=== PATIENT | male | born 1945 | race Caucasian/White ===

== ENCOUNTER → 2018-01-12 10:30 | Outpatient (CLI) | payer MEDICARE, OTHER, SELFPAY | PROVIDERS: PCP Family Medicine; Visit Provider Nurse Practitioner Gerontology | DX: N40.1 Benign prostatic hyperplasia with lower urinary tract symptoms (principal); N13.8 Other obstructive and reflux uropathy | CPT/HCPCS: 99213 ==

== ENCOUNTER 2018-03-21 01:21 | Outpatient (CLI) | payer MEDICARE, OTHER, SELFPAY | END 2018-03-21 01:41 | PROVIDERS: PCP Family Medicine; Visit Provider Family Medicine | DX: E11.9 Type 2 diabetes mellitus without complications (principal); I10 Essential (primary) hypertension | CPT/HCPCS: 36415; 83036 ==

== ENCOUNTER 2018-06-14 00:10 | Outpatient (CLI) | payer MEDICARE, OTHER, SELFPAY ==
--- NOTE | 2018-06-14 07:07 | MERGEMPI_ITS ---
*[facility]* *[facility]* [address] [place] [address] Myocardial Perfusion Imaging - SPECT Baltazar protocol Date of study: 06/14/2018 *PATIENT PRESENTATION* Height: 177.8cm (70in) Blood Pressure: Weight: 84.1kg (185lb) BSA: 2.05m^2 Referring physician: Abel Light Ordering physician: Jose Manuel Hancock Impressions: Normal study after maximal exercise. Summary: 1. Myocardial perfusion imaging: No myocardial perfusion defects noted. 2. The calculated left ventricular ejection fraction after stress: 59%. LV global systolic function is normal. No left ventricular regional motion abnormality. 3. Stress ECG conclusions: The stress ECG is negative. Seals treadmill score: 9. This score predicts a low risk of cardiac events. 4. Stress: The target heart rate was achieved. The heart rate response to stress is exaggerated. There is a normal resting blood pressure with an appropriate response to stress. The patient experienced no chest pain during stress. Exercise capacity is above normal for age. 5. Treadmill exercise testing was performed using the Baltazar protocol. The patient exercised for 9 min 4 sec, to protocol stage 3, to a maximal work rate of 10.2mets. Indication: R07.9. History: REASON FOR TESTING: PATIENT REPORTS INTERMITTENT ANNOYING DULL LEFT SIDED CHEST PAIN OVER THE LAST MONTH WITH NO ASSOCIATED SYMPTOMS. SMOKING STATUS: QUIT IN 1972, PRIOR HISTORY 9 YEARS 2 PPD. EXERCISE ROUTINE: RIDES STATIONARY BIKE FOR 1 HOUR 45 MINUTES PER DAY. Risk factors: Family history of coronary artery disease. Hypertension. Diabetes mellitus. Dyslipidemia. Cholesterol: 274mg/dl. HDL: 56mg/dl. LDL: 112mg/dl. Triglycerides: 108mg/dl. ALLERGIES: NO KNOWN ALLERGIES. MEDICATIONS: CARVEDILOL 3.125 MG BID, LISINOPRIL 10 DAILY, METFORMIN 500 MG BID, SPIRONOLACTONE 12.5 MG DAILY, LEVOTHYROXIN 112 MCG DAILY, AMLODIPINE 2.5 MG DAILY, RANITIDINE 150 MG DAILY, PRAVASTATIN 20 MG. Imaging Technique: Protocol: Baltazar protocol. Acquisition: Gated SPECT; 1 day - rest/stress. The patient was imaged in the supine position. Attenuation correction used. Isotope administration: - Rest. Tc[99m]-sestamibi. Dose: 10.4mCi. Injection time: 08:45 AM. Injection to stress time: 00:45. - Stress. Tc[99m]-sestamibi. Dose: 29.5mCi. Injection time: 11:50 AM. 1-2 min before end of exercise Baseline ECG: FIRST DEGREE HEART BLOCK WITH IN 0.23. HR 69. Normal ECG. Stress protocol: + +---+ +---+ !Stage !HR !BP (mmHg) !Sat! + +---+ +---+ !Baseline supine !69 !146/80 (102)!97%! + +---+ +---+ !Baseline standing !80 !130/90 (103)!---! + +---+ +---+ !Stage I; 1.7mph, 10degrees; 3 min !112!148/78 (101)!---! + +---+ +---+ !Stage II; 2.5mph, 12degrees; 3 min!124!180/88 (119)!---! + +---+ +---+ !Recovery; 1 min !129!170/80 (110)!---! + +---+ +---+ !Recovery; 3 min !88 !134/80 (98) !---! + +---+ +---+ !Recovery; 6 min !83 !120/80 (93) !---! + +---+ +---+ * Stress results: STRESS TEST ENDED IN 9 MINUTES 4 SECONDS DUE TO HAVING MET 100% OF TARGET HEART RATE AND FATIGUE. NORMAL HEART RATE AND BLOOD PRESSURE RESPONSE TO EXERCISE. MAX HEART RATE = 154 % OF TARGET = 104 % APPROXIMATE MET'S ACHIEVED = 10.24 RARE PVC AT 1 MINUTE RECOVERY AND RARE COUPLET. NO ANGINA NO SIGNIFICANT ST SEGMENT CHANGES. ABOVE AVERAGE FUNCTIONAL CAPACITY. Maximal heart rate during stress was 154bpm (105% of maximal predicted heart rate). The maximal predicted heart rate was 147bpm. The target heart rate was achieved. The heart rate response to stress is exaggerated. There is a normal resting blood pressure with an appropriate response to stress. The rate-pressure product for the peak heart rate and blood pressure was 83865jd Hg/min. The patient experienced no chest pain during stress. Exercise capacity is above normal for age. Stress ECG: The stress ECG is negative. Seals treadmill score: 9. This score predicts a low risk of cardiac events. Myocardial perfusion: Imaging information: gated. The image quality was excellent. Left ventricular size is normal. No myocardial perfusion defects noted. Ventricular Function (Wall Motion): The calculated left ventricular ejection fraction after stress: 59%. LV global systolic function is normal. No left ventricular regional motion abnormality. Study data: Abel Light MD supervised and was readily available during the procedure. This study was interpreted by [facility]. Study status: Routine. Consent: The risks, benefits, and alternatives to the procedure were explained to the patient and informed consent was obtained. Procedure: Initial setup. A baseline ECG was recorded. Surface ECG leads and manual cuff blood pressure measurements were monitored. Heart sounds: Normal. Lung sounds: Normal. Treadmill exercise testing was performed using the Baltazar protocol. The patient exercised for 9 min 4 sec, to protocol stage 3, to a maximal work rate of 10.2mets. Study completion: All catheters inserted during the procedure were removed. The patient tolerated the procedure well and was discharged from the lab. Discharge: The patient left the laboratory in stable condition. Birthdate: Patient birthdate: 1945. Sex: Gender: male. Study date: Study date: 06/14/2018. Study time: 07:07 AM. Signature Documentation: - The imaging portion of this study was interpreted by Nuclear Grading Supervisor Abel Light MD. - The Stress ECG portion of this study was interpreted by Abel Light MD. Electronically signed by Abel Light 06/14/2018 14:50
== END 2018-06-14 00:30 ==
PROVIDERS: PCP Family Medicine; Visit Provider Family Medicine
DX: R07.9 Chest pain, unspecified (principal); I10 Essential (primary) hypertension; E11.9 Type 2 diabetes mellitus without complications; E78.5 Hyperlipidemia, unspecified; E03.9 Hypothyroidism, unspecified; Z87.891 Personal history of nicotine dependence; Z82.49 Family history of ischemic heart disease and other diseases of the circulatory system
CPT/HCPCS: 78452; 93016; 93018; 93017; J2785

== ENCOUNTER 2018-10-12 02:08 | Outpatient (CLI) | payer MEDICARE, OTHER, SELFPAY ==
[2018-10-12 12:23] LABS: Hemoglobin A1C 6.3 % (4.5-6.2)
[2018-10-12 14:04] LABS: CREATININE 1.24 mg/dL (0.70-1.30); Estimated GFR 57.14 (mL/min/1.73m2); Potassium 4.7 mmol/L (3.5-5.1)
== END 2018-10-12 02:28 ==
PROVIDERS: PCP Family Medicine; Visit Provider Family Medicine
DX: E11.9 Type 2 diabetes mellitus without complications (principal)
CPT/HCPCS: 36415; 82565; 83036; 84132

== ENCOUNTER 2018-11-13 01:05 | Outpatient (CLI) | payer MEDICARE, OTHER, SELFPAY ==
--- NOTE | 2018-11-13 08:25 | DI.RAD_ITS ---
SYMPTOM/DIAGNOSIS: M54.9, LOW BACK PAIN LUMBAR SPINE: There is severe disc space narrowing throughout. There are prominent endplate osteophytes, greatest at L 2-3 and L 3-4 on the left causing mild degenerative scoliosis. There are also prominent facet joint degenerative changes at L 4-5 and L 5-S 1. No compression fractures are seen. There is no spondylolysis or spondylolisthesis. The aorta shows calcification and is normal in diameter. IMPRESSION: Severe degenerative changes.
== END 2018-11-13 01:25 ==
PROVIDERS: PCP Family Medicine; Visit Provider Family Medicine
DX: M54.5 Low back pain (principal); M51.37 Other intervertebral disc degeneration, lumbosacral region
CPT/HCPCS: 72110

== ENCOUNTER 2019-01-09 08:57 | Outpatient (CLI) | payer MEDICARE, OTHER, SELFPAY ==
[2019-01-09 12:44] LABS: ALT 27 U/L (12-78); AST 19 U/L (15-37); Albumin 3.6 g/dL (3.4-5.0); Alkaline Phosphatase 65 U/L (46-116); Bilirubin, Total 0.5 mg/dL (0.2-1.0); Calculated LDL 155 mg/dL; Cholesterol 231 mg/dL (50-200); HDL Cholesterol 45 mg/dL (40-60); Total Protein 6.9 g/dL (6.4-8.2); Triglyceride 158 mg/dL (30-150)
[2019-01-09 12:53] LABS: Bilirubin, Direct 0.09 mg/dL (0.00-0.20)
== END 2019-01-09 09:17 ==
PROVIDERS: PCP Family Medicine; Visit Provider Family Medicine
DX: E78.5 Hyperlipidemia, unspecified (principal)
CPT/HCPCS: 36415; 80061; 80076; 83721

== ENCOUNTER → 2019-01-31 10:24 | Outpatient (BNVA) | payer MEDICARE, OTHER, SELFPAY | PROVIDERS: PCP Family Medicine; Visit Provider Nurse Practitioner Gerontology | DX: N40.1 Benign prostatic hyperplasia with lower urinary tract symptoms (principal); N13.8 Other obstructive and reflux uropathy | CPT/HCPCS: 99213 ==

== ENCOUNTER 2019-04-18 10:01 | Outpatient (CLI) | payer MEDICARE, OTHER, SELFPAY ==
[2019-04-18 11:45] LABS: HCT 39.9 % (40.0-50.0); HGB 13.3 g/dL (13.5-17.5); Mean Corp. HGB Concentration 33.3 g/dL (32.0-36.0); Mean Corpuscular Hemoglobin 30.6 pg (27.0-33.0); Mean Corpuscular Volume 91.9 fL (80-95); Mean Platelet Volume 9.6 fL (8.0-11.0); Platelet Count 259 x1000/uL (130-400); RBC 4.34 m/cumm (4.50-6.00); RBC Distribution Width 12.4 % (11.8-14.1); White Blood Cell Count 5.32 k/cumm (4.4-10.8)
[2019-04-18 12:03] LABS: Hemoglobin A1C 6.7 % (4.5-6.2)
[2019-04-18 13:01] LABS: TSH (W/Ref FT4) 0.66 uIU/mL (0.36-3.74)
== END 2019-04-18 10:21 ==
PROVIDERS: PCP Family Medicine; Visit Provider Family Medicine
DX: I10 Essential (primary) hypertension (principal); E11.9 Type 2 diabetes mellitus without complications; K57.90 Diverticulosis of intestine, part unspecified, without perforation or abscess without bleeding
CPT/HCPCS: 36415; 85027; 83036; 84443

== ENCOUNTER → 2019-04-30 09:02 | Outpatient (BNVA) | payer MEDICARE, OTHER, SELFPAY | PROVIDERS: PCP Family Medicine; Referring Provider Family Medicine; Visit Provider Nurse Practitioner Gerontology | DX: N40.1 Benign prostatic hyperplasia with lower urinary tract symptoms (principal); N13.8 Other obstructive and reflux uropathy; I10 Essential (primary) hypertension | CPT/HCPCS: 99213 ==

== ENCOUNTER 2019-07-17 09:45 | Outpatient (CLI) | payer MEDICARE, OTHER, SELFPAY ==
[2019-07-17 13:19] LABS: Calculated LDL 134 mg/dL (<100); Cholesterol 209 mg/dL (<200); HDL Cholesterol 46 mg/dL (40-60); Triglyceride 149 mg/dL (<150)
[2019-07-17 14:21] LABS: Hemoglobin A1C 6.8 % (3.8-5.6)
== END 2019-07-17 10:05 ==
PROVIDERS: PCP Family Medicine; Visit Provider Family Medicine
DX: E78.5 Hyperlipidemia, unspecified (principal); R73.9 Hyperglycemia, unspecified
CPT/HCPCS: 36415; 80061; 83036

== ENCOUNTER 2019-07-28 21:27 | Emergency (ER) | payer MEDICARE, OTHER, SELFPAY ==
[2019-07-28 21:32] VITALS: BP 141/85; PULSE 83; RESP 14; TEMP 36.6; O2SAT 97
--- NOTE | 2019-07-28 21:45 | DI.RAD_ITS ---
EXAM: XR ELBOW RT COMPLETE INDICATION: pain, injury. COMPARISON: No exams were available for comparison TECHNIQUE: 2D digital imaging was performed. FINDINGS: No fracture or joint effusion is seen. There is some posterior soft tissue swelling over the proxima l ulna. There is mild spurring at the olecranon as well as radial tubercle. There is mild joint spa ce narrowing. IMPRESSION: Degenerative changes. No acute abnormality. DATA REPOSITORY: RADIATION DOSE DELIVERED:
--- NOTE | 2019-07-28 21:45 | DI.RAD_ITS ---
EXAM: XR SHOULDER RT COMPLETE 2+V INDICATION: pain, fall. COMPARISON: LEFT SHOULDER COMPLETE from 06/27/2009 TECHNIQUE: 2D digital imaging was performed. FINDINGS: No fracture or dislocation is seen. There is spurring at the AC joint and glenohumeral joint. There is spurring from the greater and lesser tuberosities. No tendon or joint space calcifications are s een. IMPRESSION: Degenerative changes. No acute abnormality. DATA REPOSITORY: RADIATION DOSE DELIVERED:
[2019-07-28] MEDS: Acetaminophen 500 MG TAB 1000 MG PO (21:55)
--- NOTE | 2019-07-28 21:58 | W.ED.GENAD ---
Discharge Plan Disposition Patient Disposition: HOME Condition: Stable Discharge Details Chief Complaint: Orthopedic Clinical Impression: Acute shoulder pain, Elbow injury, Epicondylitis, lateral Primary Care Provider: Jose Manuel Hancock ED Provider: Tricia Mcguire Home Meds and New Rx's Prescriptions: Continued tamsulosin [Flomax] 0.4 mg capsule 0.8 mg PO DAILY Qty: 180 RF: 3 amlodipine 5 mg tablet 10 mg PO DAILY RF: 0 levothyroxine 112 mcg tablet 112 mcg PO DAILY Qty: 90 RF: 3 metformin 500 mg tablet 500 mg PO BID Qty: 180 RF: 3 (DME) ChannelAdvisorTouch Ultra Blue Test Strip Strip See Dose Instructions .ROUTE .MEDSUPPLY Qty: 100 RF: 3 spironolactone 25 mg tablet 12.5 mg PO DAILY Qty: 45 RF: 4 aspirin 81 MG tablet,delayed release (DR/EC) 81 mg PO DAILY RF: 0 lisinopril 10 mg tablet 10 mg PO DAILY Qty: 90 RF: 3 atorvastatin 20 mg tablet 20 mg PO QPM Qty: 90 RF: 3 Discharge Instructions Instructions: Shoulder Pain (ED) Additional Instructions: Rest. Activities as tolerated. Elevate injury to prevent swelling. Sling for 3 to 5 days. Pendulum exercises as discussed, this exercise should be nonpainful. Ice to the area of discomfort for 15 min. 3-5 times daily. Motrin every 8 hours with food or Tylenol every 6 hours for soreness if needed over the counter for comfort. Followup with orthopedic doctor as discussed if not improving in one week. Return for any worsening or concerns sooner if needed. Referrals: Dallas Gold MD [ [facility] STAFF PHYSICIAN] - Discharge Data Discharge Date/Time-TO BE ENTERED AT DEPARTURE: 07/28/19 23:45 Medical Decision Making Very pleasant 74-year-old patient who fell on ice approximately 1-1/2 hours ago landing on his right arm. Patient denies any head or neck pain. Denies loss of consciousness. Denies use of blood thinners. Has no concern for head injury at this time. Patient has full range of motion of his neck with no pain elicited on exam with palpation of the midline. Patient has mild right paraspinal tenderness of the thoracic spine with no midline tenderness through the thoracic or lumbar spine. Patient with moderate proximal humeral tenderness and shoulder pain with palpation with no associated clavicle tenderness. Elbow pain is also noted on exam specifically the lateral epicondyle. No obvious deformities. Flexion extension intact of the elbow. Supination pronation intact to the forearm. Any attempt of abduction with the right arm causes significant pain. Patient is distal neurovascularly intact with strong pulses noted at the wrist. Patient did take Aleve prior to arrival. I have offered Tylenol prior to x-rays which patient consents to. Patient has no other sites of pain and a benign physical exam outside of the right arm. X-rays reveal no obvious fracture of shoulder, humerus or elbow. Epicondylitis noted on x-ray. Sling provided for patient's comfort. Rice encouraged. We did discuss possibility of ligamentous or muscular injury. Patient's exam is moderately limited given his limitations to range of motion. Did discuss sling use and recommended pendulum exercises. Patient agrees with plan of care. The patient was stable and requested discharge. Prior to discharge, my usual and customary return precautions were reviewed with the patient - this included follow-up instructions and reasons to return to the Emergency Department if conditions worsens, does not improve as expected, or other new concerns arise. HPI General Date/Time Provider Initiated Documentation: 07/28/19 21:53. HPI Narrative: This is a 74-year-old patient who slipped on ice today. Patient reports a slip and fall onto his right side. Patient reports landing on his right shoulder. Denies striking his head. Denies use of blood thinner. Patient denies headache, dizziness, nausea, vomiting. Patient denies neck pain. Patient does report mild pain behind the shoulder blade on the right. Patient predominantly complaining of right shoulder and mild right elbow pain. Patient denies numbness, tingling. He does report difficulty with any attempted range of motion of the right shoulder due to pain. Patient denies any left arm pain or lower extremity injuries. Denies chest pain, difficulty breathing or shortness of breath or wheezing. Denies abdominal pain. No pain with deep breathing. Denies any other concerns or complaints. Did take Aleve with no significant improvement in his symptoms. Patient reports injury occurred approximately 1-1/2 hours ago but pain is difficult to manage. No other concerns or complaints. Related Data Home Medications Medication Instructions Recorded Confirmed aspirin 81 mg PO DAILY tab-cap 09/13/12 07/28/19 tamsulosin 0.4 mg capsule 0.8 mg PO DAILY #180 tab-cap 01/31/19 07/28/19 levothyroxine 112 mcg tablet 112 mcg PO DAILY #90 tab-cap 04/18/19 07/28/19 metformin 500 mg tablet 500 mg PO BID #180 tab 04/18/19 07/28/19 amlodipine 5 mg tablet 10 mg PO DAILY tab 04/30/19 07/28/19 lisinopril 10 mg tablet 10 mg PO DAILY #90 tab-cap 05/16/19 07/28/19 blood sugar diagnostic #100 each 07/17/19 07/28/19 spironolactone 25 mg tablet 12.5 mg PO DAILY #45 tab-cap 07/17/19 07/28/19 atorvastatin 20 mg tablet 20 mg PO QPM #90 tab 07/24/19 07/28/19 Previous Rx's Medication Instructions Recorded tamsulosin 0.4 mg capsule 0.8 mg PO DAILY #180 tab-cap 01/31/19 levothyroxine 112 mcg tablet 112 mcg PO DAILY #90 tab-cap 04/18/19 metformin 500 mg tablet 500 mg PO BID #180 tab 04/18/19 lisinopril 10 mg tablet 10 mg PO DAILY #90 tab-cap 05/16/19 blood sugar diagnostic #100 each 07/17/19 spironolactone 25 mg tablet 12.5 mg PO DAILY #45 tab-cap 07/17/19 atorvastatin 20 mg tablet 20 mg PO QPM #90 tab 07/24/19 Allergies Allergy/AdvReac Type Severity Reaction Status Date / Time No Known Allergies Allergy Unverified 07/28/19 21:37 General Stated Complaint: Orthopedic JOSIANE: 3 Review of Systems All systems reviewed & are unremarkable except as noted in HPI and below Constitutional Constitutional: Denies fatigue, Denies headache(s) and Denies malaise ENT Ears, Nose, Mouth, and Throat: Denies headache(s) and Denies neck pain Cardiovascular Cardiovascular: Denies chest pain Respiratory Respiratory: Denies pain on inspiration Gastrointestinal Gastrointestinal: Denies abdominal pain Musculoskeletal Musculoskeletal: Denies deformity, Reports limited range of motion (Right arm), Denies neck pain, Denies numbness and Denies tingling Integumentary/Breasts Skin/Breast: Denies wounds Neurologic Neurologic: Denies headache(s), Denies numbness and Denies tingling Endocrine Endocrine: Denies fatigue FOR[facility]LY [facility], [facility] Medical History Hypotension (Acute) problematic, as he also has some high BP readings Surgical History (Updated 01/03/19 @ 07:44 by Yassine Lewis) EGD - MAC (06/06/14) Repair of inguinal hernia left 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 Well hydrated. Alert and oriented. NECK: Normal visual inspection. FROM. Trachea midline. No Midline tenderness. CHEST: Normal insepection of the chest. No rib pain with palpation RESP: Normal respiratory effort. Speaking full sentences. No cough. No audible wheezing. No retractions. CARDIO: No JVD. No murmur. Regular rate and rhythm Back: Mild right upper paraspinal tenderness. No midline tenderness throughout the cervical, thoracic and lumbar spine. No CVA tenderness. MUSCULOSKELETAL: Normal Gait. Limited range of motion of right arm. No clavicle pain with palpation on the right. Moderate right shoulder pain with palpation to proximal humeral pain with palpation. Limited range of motion of right arm. Any attempted abduction with significant pain. Mild elbow pain with palpation and swelling over the lateral epicondyle. No significant olecranon tenderness. No obvious deformity. Mild proximal forearm pain with palpation. No mid and distal forearm pain with palpation. No wrist pain with palpation or hand pain with palpation. Theater Company Producer strength intact. Pulses intact. Sensation intact distally. Left arm exam normal, lower extremity exam normal bilaterally. Strength intact in lower extremities. Straight leg raise intact bilaterally. No foot drop. No palpable pain to the lower legs SKIN: Normal. Dry. No rashes. Course Vital Signs Vital signs: Vital Signs Temperature 36.6 C 07/28/19 21:32 Pulse 83 07/28/19 21:32 Respiratory Rate 14 07/28/19 21:32 Blood Pressure 141/85 H 07/28/19 21:32 Pulse Oximetry 97 07/28/19 21:32 Temperature 36.6 C 07/28/19 21:32 Temperature Source Skin 07/28/19 21:32 Pulse 83 07/28/19 21:32 Respiratory Rate 14 07/28/19 21:32 Blood Pressure 141/85 H 07/28/19 21:32 Blood Pressure Position Sitting 07/28/19 21:32 Pulse Oximetry 97 07/28/19 21:32 Oxygen Delivery Method Room Air 07/28/19 21:32 Oxygen Flow Rate 0 07/28/19 21:32 Pain Level 10 07/28/19 21:32
--- NOTE | 2019-07-28 23:04 | DI.VRAD_ITS ---
PROCEDURE INFORMATION: Exam: XR Right Elbow Exam date and time: 07/28/2019 10:07 PM Age: 74 years old Clinical indication: Other: Pain, injury TECHNIQUE: Imaging protocol: XR Right elbow. Views: 3 or more views. COMPARISON: No relevant prior studies available. FINDINGS: Bones/joints: No acute fracture or dislocation. Soft tissues: Minor calcifications in the soft tissues adjacent to the lateral epicondyle suggesting minor chronic epicondylitis. Minor soft tissue swelling over the olecranon. This is likely a area of soft tissue contusion. IMPRESSION: 1. No fracture or dislocation. 2. Minor lateral epicondylitis. 3. Minor soft tissue swelling overlying the olecranon. Dictated and Authenticated by: Kaiden Haynes MD. Ordering:FERMÍN Clarke MD
--- NOTE | 2019-07-28 23:05 | DI.VRAD_ITS ---
PROCEDURE INFORMATION: Exam: XR Right Shoulder Exam date and time: 07/28/2019 10:01 PM Age: 74 years old Clinical indication: Other: Pain, injury TECHNIQUE: Imaging protocol: XR Right shoulder. Views: 2 or more views. COMPARISON: No relevant prior studies available. FINDINGS: Bones/joints: Moderate to severe AC joint degeneration. Mild to moderate glenohumeral joint degeneration. No acute fracture. No dislocation. Visualized right ribs without fracture. Lungs: Visualized portion of the right lung is clear. Pleural space: Right pleural space is unremarkable. Soft tissues: Normal. IMPRESSION: 1. Degenerative AC joint and glenohumeral joint. 2. No fracture, dislocation, or soft tissue disruption. Dictated and Authenticated by: Kaiden Haynes MD. Ordering:FERMÍN Clarke MD
== END 2019-07-28 23:45 | disposition home or self-care (01) ==
PROVIDERS: Emergency Provider Physician Assistant; PCP Family Medicine
DX: M77.11 Lateral epicondylitis, right elbow (principal); M25.511 Pain in right shoulder; W00.0XXA Fall on same level due to ice and snow, initial encounter
CPT/HCPCS: 99283; 73030; 73080; L3650

== ENCOUNTER → 2019-10-29 08:50 | Outpatient (BNVA) | payer MEDICARE, OTHER, SELFPAY | PROVIDERS: PCP Family Medicine; Referring Provider Family Medicine; Visit Provider Nurse Practitioner Gerontology | DX: N40.1 Benign prostatic hyperplasia with lower urinary tract symptoms (principal); N13.8 Other obstructive and reflux uropathy | CPT/HCPCS: 99213; 99442 ==

== ENCOUNTER 2019-12-19 08:47 | Outpatient (CLI) | payer MEDICARE, OTHER, SELFPAY ==
[2019-12-19 12:39] LABS: CREATININE 1.27 mg/dL (0.70-1.30); Calcium 9.4 mg/dL (8.5-10.1); Calculated LDL 80 mg/dL (<100); Cholesterol 148 mg/dL (<200); Estimated GFR 55.44 (mL/min/1.73m2); HDL Cholesterol 50 mg/dL (40-60); Potassium 4.9 mmol/L (3.5-5.1); Triglyceride 91 mg/dL (<150)
[2019-12-19 12:41] LABS: Hemoglobin A1C 6.3 % (3.8-5.6)
== END 2019-12-19 09:07 ==
PROVIDERS: PCP Family Medicine; Visit Provider Family Medicine
DX: E78.5 Hyperlipidemia, unspecified (principal); I10 Essential (primary) hypertension; E83.52 Hypercalcemia; R73.9 Hyperglycemia, unspecified
CPT/HCPCS: 36415; 80061; 82310; 82565; 83036; 84132

== ENCOUNTER 2020-02-20 10:54 | Outpatient (CLI) | payer MEDICARE, OTHER, SELFPAY ==
--- NOTE | 2020-02-20 10:00 | DI.RAD_ITS ---
EXAM: XR SHOULDER RT COMPLETE 2+V CLINICAL HISTORY: right shoulder pain. TECHNIQUE: 2D digital imaging was performed. COMPARISON: CR,XR XR SHOULDER RT COMPLETE 2+V from 07/28/2019 FINDINGS: BONES: No acute fracture is present. No bony destructive lesion is seen. Mild spurring is seen at the lateral aspect of the acromion. JOINTS: No dislocation present. Moderate degenerative changes are seen at the acromioclavicular joint . Mild degenerative changes are seen at the glenohumeral joint. SOFT TISSUE: Normal. IMPRESSION: Degenerative changes of the right shoulder. DATA REPOSITORY: RADIATION DOSE DELIVERED:
== END 2020-02-20 11:14 ==
PROVIDERS: PCP Family Medicine; Referring Provider Family Medicine; Visit Provider Student in an Organized Health Care Education/Training Program
DX: M19.011 Primary osteoarthritis, right shoulder (principal); S46.011A Strain of muscle(s) and tendon(s) of the rotator cuff of right shoulder, initial encounter; W00.0XXA Fall on same level due to ice and snow, initial encounter; M75.51 Bursitis of right shoulder; M75.21 Bicipital tendinitis, right shoulder
CPT/HCPCS: 20610; 99205; 99215; 73030; J1030

== ENCOUNTER → 2020-03-26 12:47 | Outpatient (BNVA) | payer MEDICARE, OTHER, SELFPAY | PROVIDERS: PCP Family Medicine; Referring Provider Student in an Organized Health Care Education/Training Program; Visit Provider Nurse Practitioner Adult Health | DX: G56.11 Other lesions of median nerve, right upper limb (principal); G56.21 Lesion of ulnar nerve, right upper limb; E11.42 Type 2 diabetes mellitus with diabetic polyneuropathy; Z79.84 Long term (current) use of oral hypoglycemic drugs; I10 Essential (primary) hypertension | CPT/HCPCS: 95886; 95909; 99203; 99214 ==

== ENCOUNTER → 2020-04-01 09:01 | Outpatient (BNVA) | payer MEDICARE, OTHER, SELFPAY | PROVIDERS: PCP Family Medicine; Referring Provider Family Medicine; Visit Provider Nurse Practitioner Gerontology | DX: N40.1 Benign prostatic hyperplasia with lower urinary tract symptoms (principal); N13.8 Other obstructive and reflux uropathy; E11.42 Type 2 diabetes mellitus with diabetic polyneuropathy | CPT/HCPCS: 81003; 99213 ==

== ENCOUNTER 2020-04-01 12:38 | Outpatient (REF) | payer MEDICARE, OTHER, SELFPAY ==
[2020-04-03 12:50] LABS: PSA, Screening 0.4 ng/mL (0-6.5)
== END 2020-04-01 12:58 ==
LOC: LBN 12:38
PROVIDERS: PCP Family Medicine; Visit Provider Nurse Practitioner Gerontology
DX: N40.1 Benign prostatic hyperplasia with lower urinary tract symptoms (principal); N13.8 Other obstructive and reflux uropathy; Z12.5 Encounter for screening for malignant neoplasm of prostate
CPT/HCPCS: 84153

== ENCOUNTER → 2020-05-14 08:05 | Outpatient (BNVA) | payer MEDICARE, OTHER, SELFPAY | PROVIDERS: PCP Family Medicine; Referring Provider Family Medicine; Visit Provider Student in an Organized Health Care Education/Training Program | DX: M25.511 Pain in right shoulder (principal); M19.011 Primary osteoarthritis, right shoulder; M75.51 Bursitis of right shoulder; M75.21 Bicipital tendinitis, right shoulder | CPT/HCPCS: 99214 ==

== ENCOUNTER 2020-05-19 01:23 | Outpatient (CLI) | payer MEDICARE, OTHER, SELFPAY ==
--- NOTE | 2020-05-19 14:41 | DI.CT_ITS ---
EXAM: CT UPPER EXTREMITY RT WO CLINICAL HISTORY: Preop templating glenohumeral morphology,OA,M19.011. TECHNIQUE: Imaging Protocol: Axial computed tomography images with coronal and sagittal reformatted images were created and reviewed. COMPARISON: MR MR SHOULDER RIGHT WO CONTRAST from 08/22/2019 MR MR SHOULDER RIGHT WO CONTRAST from 08/22/2019 CR XR SHOULDER RT COMPLETE 2+V from 02/20/2020 FINDINGS: Multiple contiguous axial images through the right shoulder were obtained for preoperative planning. There is no acute fracture or dislocation. The bones are normally mineralized. There are mild-to-m oderate degenerative changes at the acromioclavicular joint. There is superior subluxation of the hu meral head suspicious for chronic rotator cuff tear. Mild degenerative changes are seen at the gleno humeral joint. The visualized lungs are clear. Wyoh-pa-adojqyxw fatty atrophy of the supraspinatus infraspinatus and subscapularis muscles are noted. IMPRESSION: Degenerative changes of the right shoulder as described. Findings suspicious for a chronic rotator c uff tear with superior subluxation of the humeral head. RADIATION DOSE DELIVERED: 749.09mGy.cm Total DLP 749.09mGy.cm Total DLP DATA REPOSITORY: All CT scans at this facility are submitted to the National Radiology Data Registry (NRDR) Dose Index Registry (DIR) with the [employer] (ACR). RADIATION OPTIMIZATION: All CT scans at this facility use at least one of these dose optimization te chniques: automated exposure control; mA and/or kV adjustment per patient size (includes targeted exa ms where dose is matched to clinical indication); or iterative reconstruction.
== END 2020-05-19 01:43 ==
PROVIDERS: PCP Family Medicine; Visit Provider Student in an Organized Health Care Education/Training Program
DX: M19.011 Primary osteoarthritis, right shoulder (principal)
CPT/HCPCS: 73200

== ENCOUNTER 2020-06-10 01:54 | Outpatient (CLI) | payer MEDICARE, OTHER, SELFPAY ==
[2020-06-11 16:31] LABS: COVID-19 RT-PCR UVMMC Result Negative (Negative)
== END 2020-06-10 02:14 ==
PROVIDERS: PCP Family Medicine; Visit Provider Student in an Organized Health Care Education/Training Program
DX: Z11.52 Encounter for screening for COVID-19 (principal); Z01.818 Encounter for other preprocedural examination
CPT/HCPCS: U0003

== ENCOUNTER 2020-06-13 05:54 | Inpatient (IN) | payer MEDICARE, OTHER, SELFPAY ==
[2020-06-13] VITALS (18 sets, daily range): BP systolic 94–150; BP diastolic 59–97; PULSE 87–99; RESP 10–18; TEMP 35.6–36.7; O2SAT 93–98
[2020-06-13] MEDS: Lactated Ringers 1,000 ML 100 ML IV ×3 (06:52→21:08)
[2020-06-13] MEDS: Celecoxib 200 MG CAP PO (07:20)
[2020-06-13] MEDS: Acetaminophen 500 MG TAB 1000 MG PO (07:20)
[2020-06-13] MEDS: Gabapentin 300 MG CAP PO (07:20)
--- NOTE | 2020-06-13 07:30 | DI.RAD_ITS ---
EXAM: XR SHOULDER RT COMPLETE 2+V CLINICAL HISTORY: Postop TECHNIQUE: COMPARISON: No exams were available for comparison FINDINGS: Three views were obtained. There is a reverse shoulder prosthesis in position. The components appea r well seated. No other significant bony abnormality seen. IMPRESSION: RADIATION DOSE DELIVERED: Total DLP
[2020-06-13] MEDS: ceFAZolin 2 GM/50 ML BAG IVPB (07:37)
[2020-06-13] MEDS: EPINEPHrine 1 MG/ML AMP pres-free (09:17)
[2020-06-13] MEDS: Ketorolac 30 MG/ML VIAL (09:17)
[2020-06-13] MEDS: Bupivacaine 0.25% Pres-Free 30 ML VIAL (09:17)
--- NOTE | 2020-06-13 11:28 | W.PM.PROGNOT ---
Date of Service Date of service: 06/13/20 Time of Service: 13:56 Assessment and Plan Assessment and plan (1) Tendonitis of long head of biceps brachii of right shoulder: Status: Acute (2) Traumatic tear of right rotator cuff: Status: Acute Qualifiers: Encounter type: initial encounter Rotator cuff tear extent: complete Qualified Code(s): S46.011A - Strain of muscle(s) and tendon(s) of the rotator cuff of right shoulder, initial encounter (3) Bursitis of right shoulder: Status: Acute (4) Rotator cuff tear arthropathy of right shoulder: Status: Acute Assessment and plan: 75-year-old male postop day #0 status post right reverse total shoulder arthroplasty with biceps tenodesis Complete 24 hours postoperative antibiotics Void trial. If unable to void, place thomas and discontinue catheter AM postop day #1 Pain control-Multimodal as ordered. Physical therapy and Occupational Therapy ordered: Reverse TSA protocol. Nonweightbearing left upper extremity. May remove sling while in bed or resting. Should use when ambulatory or out of home. Passive range of motion to the shoulder. Active range of motion elbow wrist and hand okay. May use upper extremity gently for all essential ADLs including active range of motion within a limited arc with light weightbearing. Continue mechanical DVT prophylaxis with SCDs and/or MICHELLE hose Start 81 mg ASA 24 hours postoperative Plan discharge home tomorrow with home health services and physical therapy as needed Subjective Subjective Interval history since last seen: Feeling OK. Pain controlled. Shoulder/arm comfortable on pillow in bed. Exam Narrative Exam Narrative: Awake, Alert, and resting comfortably in PACU Breathing comfortably Right shoulder: Dressing c/d/i Arm compartments soft Demonstrates intact motor AIN, PIN, uln nerves SILT axillary, median, radial, ulnar nerves 2+ radial pulse; regular rate and rhythm Objective Last Vital Signs Temp 98.1 F 06/13/20 06:16 Pulse 90 06/13/20 06:16 Resp 16 06/13/20 06:16 BP 136/92 H 06/13/20 06:16 Pulse Ox 97 06/13/20 06:16
[2020-06-13] MEDS: ceFAZolin 1 GM/50 ML BAG IVPB ×2 (11:39→19:17)
--- NOTE | 2020-06-13 12:00 | ROE_ITS ---
Date of service: 06/13/20 Time of Service: 09:00 Operative Note Operative Note DATE OF PROCEDURE: 06/13/20 PRE-OP DIAGNOSIS: Right: 1. Rotator cuff arthopathy 2. Long head of the biceps tendinopathy POST-OP DIAGNOSIS: same PROCEDURE: Right: 1. Reverse total shoulder arthroplasty, CPT # 05891 2. Open biceps tenodesis, CPT # 56374 The [employer] assistant manager was medically required as this procedure involves retraction, protection of neurovascular structures, and manipulation of multiple instruments and implants at the same time, which cannot be done without a skilled [employer] assistant manager. SURGEON: Yonas Coburn SURVEY FIELD TECHNICIAN: Meño Jensen ANESTHESIA: GETA and local ESTIMATED BLOOD LOSS: 250 PATHOLOGY: none sent TOURNIQUET TIME: 0 COMPLICATIONS: None Patient was transported to: PACU Patient's condition: stable Implants: [employer] modular glenoid system baseplate 24 mm [employer] modular glenoid system central screw 25 mm [employer] modular glenoid system peripheral locking screws 36 mm inferior, 32 mm superior, 16mm posterior, 16mm anterior [employer] modular glenoid system glenosphere 42 +4 mm lateralized [employer] humeral stem 135 degrees size 8 [employer] suture cup size 42 posterior offset [employer] humeral insert size 42 +6 mm Indications: Please see complete medical record for details. Findings: Significant long head of the biceps tendon tenosynovitis with tendon sheath cyst and tendon fraying degeneration in the bicipital groove. Partial- thickness upper 50% subscapularis tear. Complete supraspinatus and majority infraspinatus tear with retraction past the glenoid, limited excursion, and degeneration. Intact teres minor. Moderate cartilage thinning humeral head and glenoid. Early eccentric glenoid wear posteriorly and superiorly. Procedure Description: In the operating room, general anesthesia was induced. The patient was positioned beachchair on the operating room table. All bony prominences were well-padded. Preoperative antibiotics were administered. The shoulder was prepped and draped in the usual sterile fashion for shoulder arthroplasty. The correct patient, procedure, and side of the procedure were all verified prior to incision. The deltopectoral approach was taken to the anterior shoulder. Care was taken to bluntly dissect the interval between the deltoid and pectoralis major muscles and to identify the cephalic vein within its fat stripe. The the vein was mobilized medially. Subdeltoid space and conjoined tendon were freed of adhesions. The long head of the biceps tendon was identified just lateral to the lesser tuberosity. The uppermost margin of the pectoralis major tendon was released from the proximal humerus. The long head of the biceps tendon was tenodesed in situ using SuteuTape in a [id number] fashion securing it superior margin the pectoralis major tendon. The biceps tendon was amputated and followed proximally to identify the rotator interval. A subscapularis peel was performed taking care to release the entirety tendon in a full-thickness fashion from superior to inferior and lateral to medial while bringing the arm gradually into external rotation. Care was taken to avoid the axillary nerve by only working on the bone inferiorly and medially. The subscapularis was tagged using SutureTape in a Yaw-Luan fashion with stitch was placed superiorly, middle, and inferiorly at the medial footprint of the tendon. The stitches were used to confirm appropriate mobilization of the subscapularis tendon after gen tle blunt dissection was used to free up the space anterior and posterior to it. Appropriate coagulation was achieved especially inferiorly. The surgical neck was cut using an oscillating saw and the head bone brought back table in case there was a need for future bone grafting. The proximal humeral protection plate was used to provisionally confirm suture cup and glenosphere size and then gently impacted over the bone cut. Attention was then turned to the glenoid and retractors were placed and a 360 degree release performed using the long head of the biceps remnant to remove soft tissue about the glenoid rim. The axillary nerve was palpated but not exposed inferior and traversing from beneath the subscapularis tendon appropriately below the scapular neck heading posteriorly. Care was taken inferiorly to work on bone only between 5 and 7:00 o'clock and bluntly elevate tissues inferiorly. The glenoid was decorticated soft tissue and a minimal amount of residual cartilage. Once adequate exposure had been achieved, the VIP guide was placed on the glenoid and used to confirm placement and trajectory of the central guidepin. The guidepin was inserted through the VIP guide and ad vanced just into the far cortex ensuring adequate central screw length. Depth gauge was used to confirm appropriate central screw length. The central reamer followed by the peripheral reamer were then used to the appropriate depths. There was appropriate eccentric reaming inferiorly and anteriorly. The tap for the central screw was then used and withdrawn with the guidewire in place confirming appropriate length. The baseplate was screwed and fully compressed onto the glenoid surface. Testing the glenoid baseplate resulted in movement through the entire scapula. The over baseplate reamer was used to confirm adequate peripheral reaming had been achieved. The locking guide and drill were used to drill for inferior and superior baseplate locking screws. The depth gauge was used to confirm appropriate screw length and they were each gently engaged. This was repeated for the anterior and posterior locking screws, and then all tightened once all screws were placed to reduce risk of rotating the baseplate. The preselected lateralized glenosphere was applied with the transportation inspector and then impacted to engage the Stephens taper. It was then locked with appropriate countersinking of the setscrew. The glenosphere was inspected and found to have good fit, appropriate positioning, and no soft tissue or bony impingement especially inferiorly. Attention was then turned back to the proximal humerus, which was delivered from the wound and maintained in external rotation. The protective plate was removed and reamers were started appropriately posterior to the bicipital groove taking care to maintain lateralized alignment so as to be straight in line with the humeral canal. Reaming was done up to size 8. The broaches were sequentially used to open the proximal humerus starting with a size 5 and going up to size 8 and sunk to the appropriate depth while maintaining approximately 30 degrees retroversion. The size 8 had good metaphyseal fit and rotational control the humerus. A size 9 was attempted but was too large to sink to the appropriate depth. A posterior offset guide was used to ream for the suture cup. The humeral trial cup was connected. Trialing was commenced with +3mm. The shoulder was reduced and taken through range of motion. It was felt to slightly loose in terms of stability but otherwise good tension on the conjoined tendon and deltoid. Trialing components were then changed to +6mm liner. The shoulder was reduced and felt to have improved stability with appropriate tension of the deltoid and conjoined tendon. Range of motion was tested past 90 degrees forward elevation, 75 degrees external rotation, internal rotation to the patient's side, and there was no appreciable impingement or notching with the arm in full adduction. This combination of implants was stable even with the patient paralyzed. The trial components were removed from the proximal humerus. The wound was copiously irrigated with normal saline. A 2 mm drill was used to drill 2 drill holes in the bicipital groove for later subscapularis suture passage repair. The the proximal humeral stem and suture cup were assembled on the back table. They were brought over to the proximal humerus. The upper SutureTape sutures from the subscapularis were passed through a suture cup hole and then through the superior drill hole, and the middle and lower SutureTape sutures through the upper and lower drill holes. Humerus and suture cup were appropriately impacted into the proximal humerus. There were tested and found of excellent rotational control and fixation. Trial reduction for stability and range of motion was done again with the +6 mm combination liner confirming correct size. The trial liner was removed and the definitive liner connected. Shoulder was reduced and these final implants demonstrated excellent range of motion and stability. The shoulder was copiously irrigated with normal saline and then irrisept. Vancomycin powder was distributed deeply about the shoulder and through subcutaneous tissues. The arm was placed in 45 degrees of external rotation. The subscapularis was reduced and repaired over the implant to the lessor tuberosity using the pairs of deep and superficial SutureTape sutures taking care ensure there was no undue tension. The arm was taken past 60 degrees of external rotation without any displacement of the subscapularis repair. The deltopectoral interval was loosely closed burying the cephalic vein with 0- Vicryl. 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 Subcutaneous tissue was irrigated then closed using 2-0 Monocryl in a buried interrupted fashion. The skin was closed using 3-0 Monocryl in a buried subcuticular fashion. Skin glue was applied to the incision. A silver impregnated bandage was placed over the incision. The extremity was placed into a shoulder immobilizer. The patient awoke from anesthesia without complication and was taken to the recovery room in stable condition.
[2020-06-13] MEDS: fentaNYL 100 MCG/2 ML VIAL IVP (12:30)
--- NOTE | 2020-06-13 14:30 | IN_ITS ---
Date of service: 06/13/20 Time of Service: 14:30 PT Notes Physical Therapy Inpatient Initial Evaluation Date: 06/13/2020 Referring Doctor: Yonas Coburn MD PT Orders: PT CONSULT: Status post Ortho surgery. Right reverse TSA Precautions: Reverse Total Shoulder Arthroplasty protocol per Dr. Coburn: NWB on R UE. Avoid combined active extension and external rotation on the R shoulder. No lifting for more than 10 pounds with the R UE. May remove sling while in bed or resting on chair. Should use when ambulatory or out of home. Passive range of motion to the shoulder. Active range of motion elbow wrist and hand okay. May use upper extremity gently for all essential ADLs including active range of motion within a limited arc with light weight bearing. Patient Profile/Admitting Diagnosis: Anthony is a 75-year-old [id number] male with diagnosis of right rotator cuff arthropathy, bursitis of right shoulder, and right long head of biceps tendinopathy status post right reverse total shoulder arthroplasty and right open biceps tenodesis on postoperative day 0. 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 He does have 3 daughters who live close by and can help with whatever he needs. His girlfriend plans on staying with him over the weekend to help out with everything he needs. He has 12 steps to his bedroom but he plans to stay on the main floor and sleep on his recliner if he needs to. Equipment Owned/DME: None Subjective: Agreeable to PT consult. States that he has all the help he will need at home. Agreeable to home health PT for continued ranging of the shoulder. Objective: General Observation: Supine in bed with the right UE resting on a pillow. Mepilex Ag over surgical incision. Antithromboembolic pumps in bilateral legs. TEDS in bilateral legs. IV in the left UE. Mental Status: Alert and oriented x4 Pain: None reported Vital Signs: Within normal limits as monitored closely by nursing staff. ROM: Right Upper Extremity: Shoulder Flexion up to 80 degrees passively with minimal discomfort with minimal discomfort at end of range. Shoulder abduction up to 60 degrees passively with minimal discomfort at end of range. Elbow flexion from 45 degrees to 75 degrees actively. Forearm pronation and supination WFL. Wrist flexion WFL. Opening and closing of hand WFL. Left Upper Extremity: Shoulder Flexion WFL. Shoulder abduction WFL. Elbow flexion WFL. Wrist flexion WFL. Opening and closing of hand WFL. Right Lower Extremity: Hip flexion WFL. Hip abduction WFL. Knee flexion WFL. Ankle dorsiflexion WFL. Ankle plantarflexion WFL. Left Lower Extremity: Hip flexion WFL. Hip abduction WFL. Knee flexion WFL. Ankle dorsiflexion WFL. Ankle plantarflexion WFL. Strength: Right Upper Extremity: Shoulder flexors NT. Shoulder abductors NT. Elbow flexors 3-/5. Elbow extensors 3-/5. Continuous Improvement Coach strong. Left Upper Extremity: Shoulder flexors 5/5. Shoulder abductors 5/5. Elbow flexors 5/5. Elbow extensors 5/5. Continuous Improvement Coach strong. Right Lower Extremity: Hip flexors 4/5. Hip abductors 4/5. Knee flexors 5/5. Knee extensors 4/5. Ankle dorsiflexors 4/5. Ankle plantarflexors 5/5. Left Lower Extremity: Hip flexors 4/5. Hip abductors 4/5. Knee flexors 5/5. Knee extensors 4/5. Ankle dorsiflexors 4/5. Ankle plantarflexors 5/5. Sensation: Intact as to pain and pressure on right upper extremity Bed Mobility/Transfers: Supine to sit supervision Sit to stand standby assist Stand to sit standby assist Bed to chair standby assist Chair to bed standby assist THERA EX: Initiated prescribed passive R shoulder exercises and active R elbow/R forearm/R hand exercises per orthopedic surgeon's protocol as written in exercise flowsheet. Gait: Guided patient through level surface ambulation of 200 feet with contact- guard assist with the left hand holding onto IV pole and with the right upper extremity in a sling. Wheelchair follow provided by Nurse Gloria. Denies increase in right shoulder pain, chest pain, headache and dizziness throughout. Balance: Static Sitting: Normal Dynamic Sitting: Normal Static Standing: Good Dynamic Standing: Fair Special Tests: Mobility Limitations Standardized Measure [facility] AM-PAC 6 clicks Basic Mobility Inpatient Short Form: Raw Score: 18 CMS Score: 47% deficit Informed Consent/Education: Patient instructed in purpose of PT consult and plan of care. Assessment: Anthony demonstrates decreased ability to use right upper extremity for all activities of daily living due to orthopedic surgeon's movement precautions and postoperative status. May require training with the use of a single-point cane prior to discharge tomorrow morning. Patient presents with clinical signs and symptoms consistent with current/admitting diagnoses that have resulted to mobility limitations, gait instability, generalized weakness, and impairment of motor control as demonstrated by the following impairment level findings: 1. Decreased strength to right shoulder major muscle groups 2. Impaired standing balance due to lack of arm swing 3. Limitation of joint range of motion in right shoulder and elbow Impairments are contributing to the following functional limitations: 1. Inability to safely ambulate without assistive device 2. Increase completion time for mobility ADL performance 3. Increased fall risk 4. Inability to negotiate steps alone safely Patient is assessed as a 162 moderate complexity based on the following: History: 75-year-old male with impairment level findings, functional limitations, and past medical history as indicated above Examination: Demonstrable impairment in strength, balance, and mobility level with underlying impairments and functional limitations as documented above Presentation:Evolving Decision Makin moderate complexity Goals: Goals X 1-2 more treatment session 1. Supine-Sit independent 2. Sit-Supine independent 3. Sit-Stand independent 4. Stand-Sit independent 5. Bed-Chair independent 6. Chair-Bed independent 7. Supervision gait on level surface with use of least restrictive device for at least 300 feet without report of pain nor dyspnea 8. Supervision stair negotiation while holding onto bilateral rails for at least 10 steps without report of pain nor dyspnea 9. Independent with donning and doffing right UE sling Plan of Care/Treatment Plan: 1-2x/day, 7 days/week x 1 week. Plan of care has been reviewed with the RAPID TRANSIT OPERATOR providing the service under Physical Therapy direction. Initiate Physical Therapy intervention for strengthening, bed mobility, transfers, gait, stairs, balance training, use of assistive device. DISCHARGE RECOMMENDATIONS: Home when medically cleared by orthopedic surgeon. May benefit from home health PT to continue with prescribed right shoulder passive ranging and rehabilitation as well as caregiver training. TREATMENT CODE/TIME: 92929 x 30 minutes, 65405 x 25 minutes, 66220 x 15 minutes beginning at 2:30 PM. Thank you for the opportunity to participate in the care of this patient. Mayela Crow PT, DPT, CLT [facility] [place], [place]
[2020-06-13] MEDS: Naproxen 500 MG TAB PO (15:08)
[2020-06-13] MEDS: metFORMIN 500 MG TAB PO (17:02)
[2020-06-13] MEDS: Atorvastatin 20 MG TAB PO (19:17)
[2020-06-13] MEDS: amLODIPine 5 MG TAB 7.5 MG PO (21:08)
[2020-06-13] MEDS: Spironolactone 25 MG TAB 12.5 MG PO (21:08)
[2020-06-14 03:15] VITALS: BP 157/89; PULSE 84; RESP 18; TEMP 36.9; O2SAT 97
[2020-06-14] MEDS: Naproxen 500 MG TAB PO (03:30)
[2020-06-14] MEDS: ceFAZolin 1 GM/50 ML BAG IVPB (03:30)
[2020-06-14] MEDS: Levothyroxine 112 MCG TAB PO (06:48)
[2020-06-14 07:30] VITALS: BP 139/79; PULSE 83; RESP 19; TEMP 36.9; O2SAT 95
[2020-06-14] MEDS: Tamsulosin 0.4 MG CAPCR 0.8 MG PO (08:22)
[2020-06-14] MEDS: metFORMIN 500 MG TAB PO (08:22)
[2020-06-14] MEDS: Aspirin E.C. 81 MG TABEC PO (08:22)
--- NOTE | 2020-06-14 09:08 | W.PM.DS.N ---
Date of service: 06/14/20 Time of Service: 09:03 DS: Diagnosis Discharge Diagnosis (1) Rotator cuff tear arthropathy of right shoulder: Status: Acute (2) Tendonitis of long head of biceps brachii of right shoulder: Status: Acute (3) Traumatic tear of right rotator cuff: Status: Acute (4) Bursitis of right shoulder: Status: Acute Discharge Plan Disposition Patient Disposition: HOME Condition: Stable Discharge Details Reason For Visit: RIGHT SHOULDER ROTATOR CUFF ARTHROPATHY Admit Date/Time: 06/13/20 05:54 Admit Provider: Yonas Coburn Attending Provider: Yonas Coburn Primary Care Provider: Jose Manuel Hancock Hospital Course Hospital Course: Right reverse TSA with biceps tenodesis 06/13/20. Postop course uncomplicated. Home Meds and New Rx's Prescriptions: New aspirin 81 mg tablet,delayed release (DR/EC) 81 mg PO DAILY 14 Days Qty: 14 RF: 0 naproxen 250 mg tablet 250 - 500 mg PO BID PRN (Reason: Moderate pain or swelling) Qty: 60 RF: 0 tramadol 50 mg Tablet 50 mg PO Q8H PRN PRN (Reason: severe pain) Qty: 12 RF: 0 Continued amlodipine 5 mg tablet 7.5 mg PO HS RF: 0 glimepiride 1 mg tablet 1 mg PO DAILY PRN (Reason: high sugar) Qty: 7 RF: 0 (DME) OneTouch Ultra Blue Test Strip Strip See Dose Instructions .ROUTE .MEDSUPPLY Qty: 100 RF: 3 tamsulosin [Flomax] 0.4 mg capsule 0.8 mg PO DAILY Qty: 180 RF: 3 aspirin 81 MG tablet,delayed release (DR/EC) 81 mg PO DAILY RF: 0 atorvastatin 20 mg tablet 20 mg PO QPM Qty: 90 RF: 3 levothyroxine 112 mcg tablet 112 mcg PO DAILY Qty: 90 RF: 3 metformin 500 mg tablet 500 mg PO BID Qty: 180 RF: 3 spironolactone 25 mg tablet 12.5 mg PO HS RF: 0 Discharge Instructions Additional Instructions: Surgery: Reverse shoulder replacement with biceps tenodesis Activity: Non-weightbearing except for ADLs. You should keep your arm at your side in a neutral position at all times except for physical therapy, gentle motion/ stretching, and essential activities. Do not try to lift or raise your arm using your own muscles. You should use the sling whenever you are out of the house. You may have to adjust the abduction pillow or remove it for comfort. At home it is best to remove the sling and rest the arm on a pillow at your side or support the operative side with your other hand. You may allow the arm to dangle at your side. A physical therapy prescription will be sent electronically to start in 2-3 weeks. Reverse TSA Protocol: Postoperative Weeks 0-6 ?Immobilization: Sling may be removed for therapeutic exercises, resting in bed or chair, and bathing ?Motion exercises: Pendulum exercises, elbow range- of-motion exercises, wrist rfkwu-em-fuoqfg exercises, and cutting machine fixer strengthening ?Restrictions: No active internal rotation or backwards extension Postoperative Weeks 6-12 ?Immobilization: Sling discontinued ?Motion exercises: Shoulder passive range of motion, advancing to active-assisted range of motion, and finally active range of motion with a goal of forward flexion to 90? and external rotation of 20? ?Strengthening exercises: Light, resisted forward flexion, external rotation, and abduction limited to isometric exercises and therapy bands with concentric motions only. Continue cutting machine fixer strengthening ?Restrictions: No resisted internal rotation or backwards extension. No scapular retraction exercises with therapy bands Postoperative Months 3-12 ?Motion exercises: Increase rejtw-ab-wiuwlo exercises to achieve full motion, with passive stretching at end ranges ?Strengthening: Begin resisted, internal rotation and backwards extension initially with isometric exercises advancing to light therapy bands and then weights. Advance other shoulder strengthening exercises to include the rotator cuff, deltoid, and scapular stabilizers. Advance to functional strengthening, including plyometric exercises and core strengthening. Prescriptions: Aspirin 81 mg take 1 daily to prevent a blood clot for 2 weeks Naproxen 250 mg take 1-2 every 12 hours with a meal as needed for moderate pain Tramadol 50 mg take 1 every 8 hours as needed for severe pain You may use dujy-pnw-biyekkg Tylenol (acetaminophen) as needed for mild pain. These pain medications may be taken all at once or in different combinations as needed. Also, recommend Colace (docusate) as a stool softener as surgery and pain medicine cause constipation. Dressings: Leave dressing in place until follow-up. Keep clean and dry at all times. No showers please. Follow-up: 10-[address] Coburn (06/25/20 at 9:15 AM) Please call the office during business hours with any questions or concerns. Let us know right away if you develop any redness, drainage, fevers, chest pain, or trouble breathing. Do not drink alcohol or drive for at least 24 hours after anesthesia. Referrals: Yonas Coburn MD [ [facility] STAFF PHYSICIAN] - Activity:: NWB RUE Equipment/Supplies:: Shoulder immobilizer Diet:: As Tolerated Discharge Orders Discharge Orders: Discharge Order (Routine); Ordered 06/14/20 Ordered By: Yonas Coburn DS: Summary Status at Discharge Functional status at discharge: independent ambulation Overall status at discharge: patient is progressing back to baseline Mental Status: mental status grossly normal Speech and Movement: speech and movement normal Mood: congruent mood Affect: normal affect Exam Narrative Exam Narrative: Awake, Alert, and resting comfortably in bed Breathing comfortably on RA Right shoulder: Dressing c/d/i Arm compartments soft Demonstrates intact motor elbow/biceps, AIN, PIN, uln nerves SILT axillary, median, radial, ulnar nerves 2+ radial pulse; regular rate and rhythm Psych Mental Status: mental status grossly normal Speech and Movement: speech and movement normal Mood: congruent mood Affect: normal affect DS: Data Vitals/I&O Vitals and I&O: Vital Signs Temperature 98.1 F 06/13/20 06:16 Pulse 90 06/13/20 06:16 Pulse Rhythm Regular 06/13/20 06:16 Respiratory Rate 16 06/13/20 06:16 Respiratory Effort 06/13/20 06:16 Respiratory Depth Deep 06/13/20 06:16 Blood Pressure 136/92 H 06/13/20 06:16 Pulse Oximetry 97 06/13/20 06:16 Oxygen Delivery Method Room Air 06/13/20 06:16 Oxygen Flow Rate 0 06/13/20 06:16 Pain Level 4 06/13/20 06:16 Intake & Output 06/12/20 06/12/20 06/13/20 11:59 23:59 11:59 Intake Total 110 / 110 Output Total 250 / 250 Balance -140 / -140 Weight 195 lb 200 lb 13.458 oz Intake: IV 110 / 110 Output: Estimated Blood Loss 250 / 250 [facility] Medical History BPH w urinary obs/LUTS Diabetic neuropathy, type II diabetes mellitus Dyspnea (01/24/14) 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) [facility] [place] Hyperlipidemia (01/31/13) Hypotension problematic, as he also has some high BP readings Hypothyroidism (12/13/12) Rotator cuff tear arthropathy of right shoulder (~07/2019) Shoulder pain, right Surgical History EGD - MAC (06/06/14) Repair of inguinal hernia left 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 B/L [facility] Spinal Fusion cervical Family History Mother Essential hypertension Heart disease Hyperlipidemia Father Essential hypertension Heart disease Hyperlipidemia Sister Essential hypertension Hyperlipidemia Brother Essential hypertension Hyperlipidemia Social History Smoking/Tobacco Use Status: Former Tobacco Use Quit Date: 05/30/72 Smoking risk assessment performed?: Yes Alcohol Intake: current Alcohol Intake frequency: 0-2 drinks per day Alcohol type: beer Drug use: Never Substance use type: does not use current occupation: SELF EMPLOYED Pets and animals: No Current gender identity: male Duration: 60-90 minutes/day Frequency: 5-6 times per week Erica/Roman Catholic: Roman Catholic Special erica needs: No Do you feel safe at home: Yes
[2020-06-14] MEDS: Acetaminophen 500 MG TAB 1000 MG PO (09:16)
--- NOTE | 2020-06-14 10:17 | PTTR_ITS ---
Date of service: 06/14/20 Time of Service: 09:40 PT Notes Visit Reasons: RIGHT SHOULDER ROTATOR CUFF ARTHROPATHY Inpatient Physical Therapy Treatment Note [facility] Date: 06/14/2020 PRECAUTIONS: NWB R UE SUBJECTIVE: Anthony states that he is feeling good and is hoping that he will be going home shortly after lunch. He reports that he has been ambulating and transferring within his room independently, and feels safe doing so. OBJECTIVE: Independent with donning/doffing sling on R UE PAIN: Patient c/o minimal discomfort with PROM to R shoulder at end range (with empty end feel) BED MOBILITY/TRANSFERS Supine-sit: I with HOB flat Sit-supine: I Sit-stand: I Stand-sit: I Bed-Chair: I Chair-bed: I GAIT Assistive Device: No AD Weight bearing: NWB R UE Assist: S Distance: 400' THEREX: Patient was instructed in AROM of elbow into flexion and extension, forearm into supination and pronation, wrist into flexion, extension, ulnar deviation, and radial deviation, and hand firer low pressure with pink cube. All performed x10 each. Patient was passively ranged through shoulder flexion, extension, IR, ER, and abduction to patient's tolerance, all with empty end feel. He was issued HEP with AROM exercises for elbow, wrist, forearm, and hand. STAIRS: Up/down 9x4 and 6x6 using U rail and a step over pattern, independently TOILETING: Patient toileted independently ASSESSMENT: Patient tolerated session without complaint. He was able to tolerate a progression in gait distance and demonstrates no need for assistive device as he is observed demonstrating steady pace and gait. He demonstrates independence with bed mobility, transfers, and short distance ambulation at this time. PLAN: Per MD, patient will follow up with outpatient PT in ~2-3 weeks TREATMENT CODE/TIME: 30 minutes; 92723, [id number]
--- NOTE | 2020-06-16 12:20 | PT.INDS ---
Date of service: 06/16/20 Time of Service: 12:20 PT Notes Visit Reasons: RIGHT SHOULDER ROTATOR CUFF ARTHROPATHY Physical Therapy Inpatient Discharge Summary Date: 06/16/2020 Dates of service: 06/13/2020 through 06/11/2020 This is a clinical summary of care provided on the duration of dates listed above. No charge was made in the completion of this documentation. Referring Doctor: Yonas Coburn MD PT Orders: PT CONSULT: Status post Ortho surgery. Right reverse TSA Precautions: Reverse Total Shoulder Arthroplasty protocol per Dr. Coburn: NWB on R UE. Avoid combined active extension and external rotation on the R shoulder. No lifting for more than 10 pounds with the R UE. May remove sling while in bed or resting on chair. Should use when ambulatory or out of home. Passive range of motion to the shoulder. Active range of motion elbow wrist and hand okay. May use upper extremity gently for all essential ADLs including active range of motion within a limited arc with light weight bearing. Patient Profile/Admitting Diagnosis: Anthony is a 75-year-old [id number] male with diagnosis of right rotator cuff arthropathy, bursitis of right shoulder, and right long head of biceps tendinopathy status post right reverse total shoulder arthroplasty and right open biceps tenodesis on postoperative day 0. 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 He does have 3 daughters who live close by and can help with whatever he needs. His girlfriend plans on staying with him over the weekend to help out with everything he needs. He has 12 steps to his bedroom but he plans to stay on the main floor and sleep on his recliner if he needs to. Equipment Owned/DME: None Subjective: NT. See most recent [employer] notes. Objective: General Observation: NT. See most recent [employer] notes. Mental Status: NT. See most recent [employer] notes. Pain: NT. See most recent [employer] notes. Vital Signs: NT. See most recent [employer] notes. ROM: Right Upper Extremity: Shoulder Flexion up to 80 degrees passively with minimal discomfort with minimal discomfort at end of range. Shoulder abduction up to 60 degrees passively with minimal discomfort at end of range. Elbow flexion from 45 degrees to 75 degrees actively. Forearm pronation and supination WFL. Wrist flexion WFL. Opening and closing of hand WFL. Left Upper Extremity: Shoulder Flexion WFL. Shoulder abduction WFL. Elbow flexion WFL. Wrist flexion WFL. Opening and closing of hand WFL. Right Lower Extremity: Hip flexion WFL. Hip abduction WFL. Knee flexion WFL. Ankle dorsiflexion WFL. Ankle plantarflexion WFL. Left Lower Extremity: Hip flexion WFL. Hip abduction WFL. Knee flexion WFL. Ankle dorsiflexion WFL. Ankle plantarflexion WFL. Strength: Right Upper Extremity: Shoulder flexors NT. Shoulder abductors NT. Elbow flexors 3-/5. Elbow extensors 3-/5. Liquid Sugar Fortifier strong. Left Upper Extremity: Shoulder flexors 5/5. Shoulder abductors 5/5. Elbow flexors 5/5. Elbow extensors 5/5. Liquid Sugar Fortifier strong. Right Lower Extremity: Hip flexors 4/5. Hip abductors 4/5. Knee flexors 5/5. Knee extensors 4/5. Ankle dorsiflexors 4/5. Ankle plantarflexors 5/5. Left Lower Extremity: Hip flexors 4/5. Hip abductors 4/5. Knee flexors 5/5. Knee extensors 4/5. Ankle dorsiflexors 4/5. Ankle plantarflexors 5/5. Sensation: Intact as to pain and pressure on right upper extremity Bed Mobility/Transfers: Supine to sit independent Sit to stand independent Stand to sit independent Bed to chair independent Chair to bed independent THERA EX: Initiated prescribed passive R shoulder exercises and active R elbow/R forearm/R hand exercises per orthopedic surgeon's protocol as written in exercise flowsheet. Gait: Up to 400 feet with supervision without AD. Up and down 9 x 4-inch steps and 6 x 6-inch steps while holding onto unilateral rail with step over step independently. Balance: Static Sitting: Normal Dynamic Sitting: Normal Static Standing: Good Dynamic Standing: Fair Assessment: Anthony continues demonstrate decreased ability to use right upper extremity for all activities of daily living due to orthopedic surgeon's movement precautions and postoperative status. May require training with the use of a single-point cane prior to discharge tomorrow morning. Patient continues to present with clinical signs and symptoms consistent with current/admitting diagnoses that have resulted to mobility limitations, gait instability, generalized weakness, and impairment of motor control as demonstrated by the following impairment level findings: 1. Decreased strength to right shoulder major muscle groups 2. Impaired standing balance due to lack of arm swing 3. Limitation of joint range of motion in right shoulder and elbow Impairments are continuing to contribute to the following functional limitations: 1. Inability to safely ambulate without assistive device 2. Increase completion time for mobility ADL performance 3. Increased fall risk 4. Inability to negotiate steps alone safely Goals: Goals X 1-2 more treatment session 1. Supine-Sit independent MET 2. Sit-Supine independent MET 3. Sit-Stand independent MET 4. Stand-Sit independent MET 5. Bed-Chair independent MET 6. Chair-Bed independent MET 7. Supervision gait on level surface with use of least restrictive device for at least 300 feet without report of pain nor dyspnea NOT MET 8. Supervision stair negotiation while holding onto bilateral rails for at least 10 steps without report of pain nor dyspnea NOT MET 9. Independent with donning and doffing right UE sling MET DISCHARGE RECOMMENDATIONS: Home when medically cleared by orthopedic surgeon. May benefit from home health PT to continue with prescribed right shoulder passive ranging and rehabilitation as well as caregiver training. TREATMENT CODE/TIME: NC. Thank you for the opportunity to participate in the care of this patient. Mayela Crow PT, DPT, CLT [facility] [place], [place]
== END 2020-06-14 11:13 | disposition home or self-care (01) | DRG 483 ==
LOC: PDS 05:54 → MS 13:56
PROVIDERS: Admitting Provider Student in an Organized Health Care Education/Training Program; PCP Family Medicine; Visit Provider Student in an Organized Health Care Education/Training Program
PROC: 0RRJ00Z Replacement of Right Shoulder Joint with Reverse Ball and Socket Synthetic Substitute, Open Approach (ICD-10-PCS; CPT 23472; principal; 2020-06-13 07:30)
DX: M75.101 Unspecified rotator cuff tear or rupture of right shoulder, not specified as traumatic (principal); M75.21 Bicipital tendinitis, right shoulder; M75.51 Bursitis of right shoulder; I10 Essential (primary) hypertension; E11.9 Type 2 diabetes mellitus without complications; E03.9 Hypothyroidism, unspecified; E78.5 Hyperlipidemia, unspecified
CPT/HCPCS: 23472; 23430; 97110; 97162; 97530; NC; 73030; C1781; J0171; J0690; J1100; J1885; J2001; J2370; J2405; J2704; J3010

== ENCOUNTER 2020-06-25 10:06 | Outpatient (CLI) | payer MEDICARE, OTHER, SELFPAY ==
--- NOTE | 2020-06-25 09:30 | DI.RAD_ITS ---
EXAM: XR SHOULDER RT COMPLETE 2+V INDICATION: F/u. COMPARISON: CR XR SHOULDER RT COMPLETE 2+V from 06/13/2020 TECHNIQUE: 2D digital imaging was performed. FINDINGS: There is been no change in the alignment right shoulder prosthesis. There are no abnormal surroundi ng lucencies. A small amount there residual postsurgical air is seen near the acromion. DATA REPOSITORY: RADIATION DOSE DELIVERED:
== END 2020-06-25 10:26 ==
PROVIDERS: PCP Family Medicine; Referring Provider Family Medicine; Visit Provider Student in an Organized Health Care Education/Training Program
DX: Z47.89 Encounter for other orthopedic aftercare (principal); Z96.611 Presence of right artificial shoulder joint; M12.811 Other specific arthropathies, not elsewhere classified, right shoulder
CPT/HCPCS: 73030

== ENCOUNTER 2020-07-07 16:00 | Outpatient (REF) | payer MEDICARE, OTHER, SELFPAY ==
[2020-07-09 14:04] LABS: COVID-19 RT-PCR UVMMC Result Negative (Negative)
== END 2020-07-07 16:01 | disposition home or self-care (01) ==
LOC: LBN 16:00
PROVIDERS: PCP Family Medicine; Visit Provider Nurse Practitioner Family
DX: R09.89 Other specified symptoms and signs involving the circulatory and respiratory systems (principal)
CPT/HCPCS: U0003; U0005

== ENCOUNTER → 2020-08-13 09:37 | Outpatient (BNVA) | payer MEDICARE, OTHER, SELFPAY | PROVIDERS: PCP Family Medicine; Referring Provider Family Medicine; Visit Provider Student in an Organized Health Care Education/Training Program | DX: Z47.89 Encounter for other orthopedic aftercare (principal); M12.811 Other specific arthropathies, not elsewhere classified, right shoulder; M75.21 Bicipital tendinitis, right shoulder; M75.51 Bursitis of right shoulder ==

== ENCOUNTER 2020-11-18 08:37 | Outpatient (CLI) | payer MEDICARE, OTHER, SELFPAY ==
--- NOTE | 2020-11-18 08:30 | DI.RAD_ITS ---
Exam(s) XR SHOULDER RT COMPLETE 2+V EXAM: XR SHOULDER RT COMPLETE 2+V CLINICAL HISTORY: f/u TECHNIQUE: COMPARISON: CR XR SHOULDER RT COMPLETE 2+V from 06/25/2020 FINDINGS: Three views were obtained. There is a reverse shoulder prosthesis in position. The components appea r well seated. No other significant bony abnormality seen apart from hypertrophic degenerative holguin es of the acromioclavicular joint. IMPRESSION: RADIATION DOSE DELIVERED: Total DLP
== END 2020-11-18 08:38 | disposition home or self-care (01) ==
LOC: DIORS 08:37
PROVIDERS: PCP Family Medicine; Referring Provider Family Medicine; Visit Provider Student in an Organized Health Care Education/Training Program
DX: Z47.89 Encounter for other orthopedic aftercare (principal); M75.101 Unspecified rotator cuff tear or rupture of right shoulder, not specified as traumatic; M12.811 Other specific arthropathies, not elsewhere classified, right shoulder; M75.21 Bicipital tendinitis, right shoulder; M75.51 Bursitis of right shoulder
CPT/HCPCS: 99213; 73030

== ENCOUNTER 2021-02-04 08:43 | Outpatient (CLI) | payer MEDICARE, OTHER, SELFPAY ==
[2021-02-04 11:55] LABS: CREATININE 1.1 mg/dL (0.70-1.30); Creatine Kinase 218 U/L (39-308); Potassium 4.8 mmol/L (3.5-5.1)
[2021-02-04 12:06] LABS: Calculated LDL 72 mg/dL (<100); Cholesterol 153 mg/dL (<200); HDL Cholesterol 65 mg/dL (40-60); Triglyceride 81 mg/dL (<150)
== END 2021-02-04 08:44 | disposition home or self-care (01) ==
LOC: LBO 08:48
PROVIDERS: PCP Family Medicine; Visit Provider Family Medicine
DX: I10 Essential (primary) hypertension (principal); E78.5 Hyperlipidemia, unspecified; G72.89 Other specified myopathies
CPT/HCPCS: 36415; 80061; 82550; 82565; 84132

== ENCOUNTER 2021-03-11 09:02 | Outpatient (CLI) | payer MEDICARE, OTHER, SELFPAY ==
--- NOTE | 2021-03-11 08:39 | DI.RAD_ITS ---
Exam(s) XR SHOULDER RT COMPLETE 2+V EXAM: XR SHOULDER RT COMPLETE 2+V CLINICAL HISTORY: rtc tear f/u. TECHNIQUE: 2D digital imaging was performed. COMPARISON: CR XR SHOULDER RT COMPLETE 2+V from 11/18/2020 FINDINGS: Stable position alignment of the components of the reverse prosthesis. No fracture or loosening evid ent. IMPRESSION: DATA REPOSITORY: RADIATION DOSE DELIVERED:
== END 2021-03-11 09:03 | disposition home or self-care (01) ==
LOC: DIORS 09:02
PROVIDERS: PCP Family Medicine; Referring Provider Family Medicine; Visit Provider Student in an Organized Health Care Education/Training Program
DX: S46.011D Strain of muscle(s) and tendon(s) of the rotator cuff of right shoulder, subsequent encounter (principal); G56.21 Lesion of ulnar nerve, right upper limb; M54.2 Cervicalgia; X58.XXXD Exposure to other specified factors, subsequent encounter
CPT/HCPCS: 99213; 73030

== ENCOUNTER 2021-03-12 01:29 | Outpatient (CLI) | payer MEDICARE, OTHER, SELFPAY ==
--- NOTE | 2021-03-12 08:15 | DI.US_ITS ---
Exam(s) US SOFT TISS ABD WALL/LOW BACK EXAM: US SOFT TISS ABD WALL/LOW BACK CLINICAL HISTORY: rt lumbar paravertebral subcutaneous lesion.?LIPOMA VS CYSTIC LESION,D49.9 TECHNIQUE: Ultrasound performed using standard protocol. COMPARISON: US ABDOMEN ULTRASOUND (P) from 01/07/2015 FINDINGS: Scanning of the lumbar region was performed bilaterally for question visual asymmetry of lumbar regio n. No focal mass identified. Unremarkable appearance of the subcutaneous soft tissues. IMPRESSION: DATA REPOSITORY:
== END 2021-03-12 01:49 ==
PROVIDERS: PCP Family Medicine; Visit Provider Family Medicine
DX: L98.8 Other specified disorders of the skin and subcutaneous tissue (principal); D49.89 Neoplasm of unspecified behavior of other specified sites
CPT/HCPCS: 76705

== ENCOUNTER → 2021-04-02 10:31 | Outpatient (BNVA) | payer MEDICARE, OTHER, SELFPAY | PROVIDERS: PCP Family Medicine; Referring Provider Family Medicine; Visit Provider Nurse Practitioner Gerontology | DX: N40.1 Benign prostatic hyperplasia with lower urinary tract symptoms (principal); N13.8 Other obstructive and reflux uropathy; Z79.899 Other long term (current) drug therapy | CPT/HCPCS: 99213 ==

== ENCOUNTER 2021-06-02 08:07 | Outpatient (CLI) | payer MEDICARE, OTHER, SELFPAY ==
--- NOTE | 2021-06-28 19:02 | RESPIRATORY ---
Received fax from [employer] that patient had 8-beat run of V-tach early this morning. Pt was notified, he did not notice any symptoms and was able to take his own vitals, including BP at home. Pt reported that he has 1 more day of monitoring and is feeling good.
--- NOTE | 2021-07-02 15:47 | W.CARDEVENT ---
Date of service: 07/02/21 Time of Service: 15:47 Cardiac Event Recorder Referring Provider:: Jose Manuel Hancock Indications:: Palpitations Cardiac Event Note: This is a 30-day event monitor ordered for palpitations Predominant rhythm was sinus with first-degree AV block. Average heart rate was 89, minimum 54, maximum 121 Premature ventricular contractions were seen. There were several 4-9 beat runs of nonsustained ventricular tachycardia, which appeared asymptomatic Patient symptoms of fluttering corresponded to premature ventricular contractions Patient symptoms of dizziness corresponded to sinus tachycardia at 104 bpm, sinus rhythm at 97 There was no atrial fibrillation, no high-grade AV block, no pauses greater than 3 seconds
== END 2021-06-02 08:08 | disposition home or self-care (01) ==
LOC: RT 08:12
PROVIDERS: PCP Family Medicine; Visit Provider Family Medicine
DX: R00.2 Palpitations (principal)
CPT/HCPCS: 93270

== ENCOUNTER 2021-06-10 09:36 | Outpatient (CLI) | payer MEDICARE, OTHER, SELFPAY ==
--- NOTE | 2021-06-10 08:00 | DI.RAD_ITS ---
Exam(s) XR SHOULDER RT COMPLETE 2+V EXAM: XR SHOULDER RT COMPLETE 2+V CLINICAL HISTORY: right shoulder f/u. TECHNIQUE: 2D digital imaging was performed. COMPARISON: CR XR SHOULDER RT COMPLETE 2+V from 11/18/2020 CR XR SHOULDER RT COMPLETE 2+V from 03/11/2021 FINDINGS: There is continued stable alignment of the components of reverse prosthesis. No fractures or looseni ng evident. IMPRESSION: DATA REPOSITORY: RADIATION DOSE DELIVERED:
== END 2021-06-10 09:37 | disposition home or self-care (01) ==
LOC: DIORS 09:37
PROVIDERS: PCP Family Medicine; Visit Provider Student in an Organized Health Care Education/Training Program
DX: Z47.1 Aftercare following joint replacement surgery; M12.811 Other specific arthropathies, not elsewhere classified, right shoulder; M54.2 Cervicalgia; M54.50 Low back pain, unspecified; Z96.611 Presence of right artificial shoulder joint
CPT/HCPCS: 99213; 73030

== ENCOUNTER 2021-06-25 10:29 | Outpatient (CLI) | payer MEDICARE, OTHER, SELFPAY ==
--- NOTE | 2021-06-25 10:15 | RT.EKG_ITS ---
APPROVED REPORT Exam: Resting ECG Reason for Exam: palpitations Patient Location: O HR:71 bpm ECG Measurements Heart Rate 71 AXIS CO 243 P 14 QRSd 92 QRS -7 QT 389 T 40 QTc 423 Conclusion Sinus rhythm...normal P axis, V-rate 50- 99 Ventricular premature complex...V complex w/ short R-R interval Prolonged CO interval...CO >220, V-rate 50- 90 Consider anterior infarct...Q >30mS in V2-V5
== END 2021-06-25 10:30 | disposition home or self-care (01) ==
LOC: DI.CARD 10:30
PROVIDERS: PCP Family Medicine; Visit Provider Internal Medicine Cardiovascular Disease
DX: R00.2 Palpitations (principal); I49.3 Ventricular premature depolarization
CPT/HCPCS: 93010

== ENCOUNTER → 2021-06-25 10:43 | Outpatient (BNVA) | payer MEDICARE, OTHER, SELFPAY | PROVIDERS: PCP Family Medicine; Referring Provider Family Medicine; Visit Provider Internal Medicine Cardiovascular Disease | DX: R00.2 Palpitations (principal); I10 Essential (primary) hypertension | CPT/HCPCS: 93005; 99204; 99213 ==

== ENCOUNTER 2021-06-30 01:09 | Outpatient (CLI) | payer MEDICARE, OTHER, SELFPAY ==
--- NOTE | 2021-06-30 14:55 | DI.US_ITS ---
APPROVED REPORT EXAM: Comprehensive 2D, Doppler, and color-flow Echocardiogram Patient Location: Out-Patient Circus Supervisor: Alison Thibodeaux RDCS (AE) Indications: Palpitations, HTN Other Information Study Quality: Adequate Conclusion Normal left ventricular wall thickness and chamber size. Estimated ejection fraction is 55 to 60%. Wall motion is normal Normal right ventricular size and systolic function Both atria are normal in size The aortic valve is trileaflet and mildly sclerotic with trace regurgitation. There is no aortic phoebe nosis Calcified mitral annulus. Thickened mitral leaflets. Trace to mild mitral regurgitation Normal tricuspid valve with trace to mild regurgitation. Estimated right ventricular systolic pressu re is normal at 23 mmHg Mildly dilated ascending aorta Wall motion Left Ventricle The left ventricle is normal size. The left ventricular systolic function is normal. The left ventric ular ejection fraction is within the normal range. There is normal left ventricular wall thickness. T here is normal LV segmental wall motion. There is no ventricular septal defect visualized. LVEF is 58 %. Right Ventricle The right ventricle is normal size. The right ventricular systolic function is normal. The RVSP is 22 .9 mmHg. Atria The left atrium size is normal. The right atrium size is normal. The interatrial septum is intact wit h no evidence for an atrial septal defect. Aortic Valve The Aortic valve is mildly sclerotic. Aortic valve is trileaflet. There is no aortic valvular stenosi s. Trace aortic regurgitation.. Mitral Valve Mild mitral annular calcification. Mitral valve leaflets are mildly thickened. No evidence of mitral valve stenosis. Trace to mild mitral regurgitation. Tricuspid Valve The tricuspid valve is normal in structure. There is no tricuspid valve stenosis. Trace to mild tricu spid regurgitation. Pulmonic Valve The pulmonary valve is normal in structure. There is no pulmonic valvular stenosis. Trace pulmonic re gurgitation. Great Vessels The aortic root is normal in size. The ascending aorta is mildly dilated. Aortic arch is normal in ca liber. IVC is normal in size and collapses >50% with inspiration. Pericardium There is no pericardial effusion. 2D Dimensions IVSD d PLAX 1.02 cm M: 0.6-1.2 LV Vol A2C d MOD 126.7 mL LVPW d PLAX 1.04 cm M: 0.6 - 1.2 LV Vol A4C d MOD 136.8 mL LVID d PLAX 4.28 cm M: 4.2 - 5.8 LA vol/ BSA A2C s A-L 23.2 mL/m2 LVDs 2.90 cm M: 2.5 - 4.0 LA vol/ BSA A4C s A-L 23.4 mL/m2 Ao Root d 2.96 cm M: 3.1 - 3.7 LA Vol/ BSA Biplane s A-L 24.0 mL/m2 RA Area A4C 10.38 cm2 LA Area A4C s MOD 16.24 cm2 RA Vol/ BSA A4C s A-L 11.1 mL/m2 LA Area A2C s MOD 16.65 cm2 Ao Asc Diam d 3.64 cm M: 2.6 - 3.4 LV EF A4C MOD 58.2 % LV EF Teichholz 59.7 % LV EF A2C MOD 57.2 % LVEF (Morales's) 56.35 % M: 52 - 72 LV EF Biplane MOD 56.4 % LV Volume 100.20 mL M: 62 - 150 SV 75.53 mL LV Volume Index 49.60 mL/m2 M: 34 - 74 SV Index 37.40 mL/m2 LV Vol Biplane MOD 134.0 mL FS 31.45 % M-Mode TAPSE 1.96 cm (M/F) >1.7 LV Diastology MV E' medial 0.097 (>0.07 m/s) E/A Ratio 0.5 LV E/e MED 6.00 (<14) MV E Vmax 0.58 (0.4-1.3 m/s) MV E' lateral 0.086 (>0.1 m/s) MV A Vmax 1.10 (0.4-1.3 m/s) LV E/e LAT 6.75 (<14) MV E/A Ratio 0.51 MV E/E' medial 6.01 MV E/E' lateral 6.78 Aortic Valve LVOT Area 2.96 cm2 AoV Area Vmax 1.51 cm2 LVOT Vmax 0.86 m/s AoV Area/ BSA (Vmax) 0.75 cm2/m2 LVOT Mean Troy. 0.68 m/s JUAN CARLOS Mean [place]. 1.62 cm2 LVOT Peak Grad 2.9 mmHg JUAN CARLOS Mean [place]. Index 0.80 cm2/m2 LVOT Mean Grad 2.0 mmHg LVOT VTI 0.197 m LVOT Diam s 1.90 cm AoV Vmax 1.67 m/s Velocity Ratio 0.51 AoV Mean Troy. 1.24 m/s AoV Peak Grad 11.2 mmHg LVOT SV 58.28 mL AoV Mean Grad 6.8 mmHg AoV VTI 0.406 m AoV Area VTI 1.43 cm2 AoV Area/ BSA (VTI) 0.71 cm/m2 Mitral Valve MV DT 308 (160-240 msec) MV PHT 89 msec MV Area PHT 2.47 cm2 MV VTI 0.299 m MV Area VTI 1.95 (4.0-6.0 cm2) Pulmonary Valve PV Vmax 1.27 (0.5-1.5 m/s) RVOT Peak Gr. 3.42 mmHg PV Peak Grad 6.4 mmHg RVOT Mean Gr. 1.70 mmHg PV Mean Grad 2.9 mmHg RVOT VTI 0.164 m PV VTI 0.204 m RVOT Vmax 0.92 m/s Tricuspid Valve TR Peak Grad 19.8 mmHg TR Vmax 2.23 m/s RA Pressure 3.00 mmHg RVSP (TR) 22.9 mmHg
== END 2021-06-30 01:29 ==
PROVIDERS: PCP Family Medicine; Visit Provider Internal Medicine Cardiovascular Disease
DX: I10 Essential (primary) hypertension (principal); R00.2 Palpitations
CPT/HCPCS: 93306

== ENCOUNTER 2021-07-02 15:47 | Outpatient (CLI) | payer MEDICARE, OTHER, SELFPAY | END 2021-07-02 15:48 | LOC: CARDO 07-08 10:30 | PROVIDERS: PCP Family Medicine; Referring Provider Family Medicine; Visit Provider Internal Medicine Cardiovascular Disease | DX: R01.1 Cardiac murmur, unspecified (principal); I47.2 Ventricular tachycardia; I49.3 Ventricular premature depolarization | CPT/HCPCS: 93272 ==

== ENCOUNTER 2021-08-05 12:25 | Outpatient (CLI) | payer MEDICARE, OTHER, SELFPAY ==
--- NOTE | 2021-08-05 12:15 | RT.EKG_ITS ---
APPROVED REPORT Exam: Resting ECG Reason for Exam: pre op evalutation of cardiac status Patient Location: O HR:78 bpm ECG Measurements Heart Rate 78 AXIS [place] 248 P 59 QRSd 98 QRS 14 QT 373 T 28 QTc 425 Conclusion Sinus rhythm...normal P axis, V-rate 60- 99 Ventricular trigeminy...trigeminy string>6 w/ V complexes Prolonged [place] interval...[place] >220, V-rate 50- 90
== END 2021-08-05 12:26 | disposition home or self-care (01) ==
LOC: DI.CM 12:27
PROVIDERS: PCP Family Medicine; Visit Provider Family Medicine
DX: Z01.818 Encounter for other preprocedural examination (principal); R94.31 Abnormal electrocardiogram [ECG] [EKG]
CPT/HCPCS: 93010

== ENCOUNTER 2021-08-07 04:27 | Outpatient (CLI) | payer MEDICARE, OTHER, SELFPAY ==
[2021-08-07 13:12] LABS: HGB 12.7 g/dL (13.5-17.5); MCH 30.4 pg (27.0-33.0); MCHC 33.4 % (32.0-36.0); MCV 90.9 fL (80-95); MPV 9.2 fL (8.0-11.0); Platelet Count 209 10^3/uL (130-400); RBC 4.18 10^6/uL (4.36-5.78); RDW 13.1 % (11.8-14.1); RDW-SD 42.8 fL; WBC 7.99 10^3/uL (4.4-10.8)
[2021-08-07 13:48] LABS: Prothrombin Time 9.9 sec (9.3-11.0)
[2021-08-07 14:22] LABS: BUN 22 mg/dL (7-18); CREATININE 1.3 mg/dL (0.70-1.30); Chloride 102 mmol/L (98-107); Estimated GFR 53.67 (mL/min/1.73m2); Glucose 111 mg/dL (74-106); Potassium 4.4 mmol/L (3.5-5.1); Sodium 139 mmol/L (136-145)
== END 2021-08-07 04:28 | disposition home or self-care (01) ==
LOC: LBO 04:31
PROVIDERS: PCP Family Medicine; Visit Provider Family Medicine
DX: R53.83 Other fatigue (principal); E87.1 Hypo-osmolality and hyponatremia; E11.9 Type 2 diabetes mellitus without complications; Z79.01 Long term (current) use of anticoagulants
CPT/HCPCS: 36415; 80048; 85027; 85610

== ENCOUNTER → 2021-09-24 08:29 | Outpatient (BNVA) | payer MEDICARE, OTHER, SELFPAY | PROVIDERS: PCP Family Medicine; Referring Provider Family Medicine; Visit Provider Nurse Practitioner Gerontology | DX: N40.1 Benign prostatic hyperplasia with lower urinary tract symptoms (principal); N13.8 Other obstructive and reflux uropathy; R35.0 Frequency of micturition | CPT/HCPCS: 51798; 81003; 99214 ==

== ENCOUNTER → 2021-09-24 14:00 | Outpatient (BNVA) | payer MEDICARE, OTHER, SELFPAY | PROVIDERS: PCP Family Medicine; Referring Provider Family Medicine; Visit Provider Internal Medicine Cardiovascular Disease | DX: R00.2 Palpitations (principal); I10 Essential (primary) hypertension | CPT/HCPCS: 51798; 81003; 99214; 99213 ==

== ENCOUNTER → 2022-03-19 13:38 | Outpatient (CLI) | payer MEDICARE, OTHER, SELFPAY ==
--- NOTE | 2022-03-19 09:30 | DI.RAD_ITS ---
Exam(s) XR FOOT RT COMPLETE EXAM: XR FOOT RT COMPLETE CLINICAL HISTORY: HALLUX RIGIDUS--M20.20. TECHNIQUE: 2D digital imaging was performed. COMPARISON: CR,DX RIGHT FOOT COMPLETE from 08/23/2017 FINDINGS: 3 views Again noted is dorsal arthrodesis plate across the 1st metatarsophalangeal joint. Partial fusion not ed. No hardware loosening nor radiographic evidence of osteomyelitis. The PIP joint of the 2nd toe is fused. There is fusion hardware across the PIP joint of the 3rd toe. There is also a osteotomy screw in the head of the 3rd metatarsal. No radiographic evidence of osteomyelitis. IMPRESSION: DATA REPOSITORY: RADIATION DOSE DELIVERED:
== END ==
PROVIDERS: PCP Family Medicine; Visit Provider Podiatrist Foot & Ankle Surgery
DX: M79.671 Pain in right foot (principal); Z98.1 Arthrodesis status
CPT/HCPCS: 73630

== ENCOUNTER → 2022-04-01 10:04 | Outpatient (BNVA) | payer MEDICARE, OTHER, SELFPAY | PROVIDERS: PCP Family Medicine; Referring Provider Family Medicine; Visit Provider Nurse Practitioner Gerontology | DX: N40.1 Benign prostatic hyperplasia with lower urinary tract symptoms (principal); N13.8 Other obstructive and reflux uropathy | CPT/HCPCS: 51798; 99214 ==

== ENCOUNTER → 2022-04-21 08:06 | Outpatient (BNVA) | payer MEDICARE, OTHER, SELFPAY | PROVIDERS: PCP Family Medicine; Referring Provider Family Medicine; Visit Provider Nurse Practitioner Gerontology | DX: N32.81 Overactive bladder (principal); N40.1 Benign prostatic hyperplasia with lower urinary tract symptoms; N13.8 Other obstructive and reflux uropathy | CPT/HCPCS: 99214 ==

== ENCOUNTER → 2022-10-13 09:02 | Outpatient (BNVA) | payer MEDICARE, SELFPAY | PROVIDERS: PCP Family Medicine; Visit Provider Nurse Practitioner Gerontology | DX: N40.1 Benign prostatic hyperplasia with lower urinary tract symptoms (principal); N13.8 Other obstructive and reflux uropathy | CPT/HCPCS: 51798; 99213 ==

== ENCOUNTER 2022-11-09 08:51 | Outpatient (CLI) | payer MEDICARE, SELFPAY ==
[2022-11-09 11:02] LABS: Calculated LDL 76 mg/dL (<100); Cholesterol 157 mg/dL (<200); HDL Cholesterol 54 mg/dL (40-60); TSH (W/Ref FT4) 0.74 uIU/mL (0.36-3.74); Triglyceride 139 mg/dL (<150)
== END 2022-11-09 08:52 | disposition home or self-care (01) ==
LOC: LOS 08:52
PROVIDERS: PCP Family Medicine; Referring Provider Family Medicine; Visit Provider Family Medicine
DX: E03.9 Hypothyroidism, unspecified (principal); E78.5 Hyperlipidemia, unspecified; E11.9 Type 2 diabetes mellitus without complications
CPT/HCPCS: 36415; 80061; 84443

== ENCOUNTER → 2023-01-24 10:44 | Outpatient (BNVA) | payer MEDICARE, SELFPAY | PROVIDERS: PCP Family Medicine; Referring Provider Podiatrist; Visit Provider Surgery | DX: I73.9 Peripheral vascular disease, unspecified (principal); I10 Essential (primary) hypertension | CPT/HCPCS: 93922 ==

== ENCOUNTER → 2023-02-01 01:06 | Outpatient (CLI) | payer MEDICARE, SELFPAY ==
--- NOTE | 2023-02-01 07:15 | DI.RAD_ITS ---
Exam(s) XR FOOT LT COMPLETE EXAM: XR FOOT LT COMPLETE CLINICAL HISTORY: HAMMER TOE LT FOOT, PAIN,M20.42. TECHNIQUE: 2D digital imaging was performed of the left foot. Three images were obtained. AP, obli que and lateral views were obtained. COMPARISON: No exams were available for comparison FINDINGS: BONES: No acute fracture is present. No bony destructive lesion is seen. JOINTS: No dislocation present. There are marked degenerative changes in the foot, particularly seen at the 1st metatarsophalangeal joint. There are hammertoe deformities of the 3rd, 4th and 5th toes. SOFT TISSUE: Normal. IMPRESSION: Degenerative changes of the foot. DATA REPOSITORY: RADIATION DOSE DELIVERED:
--- NOTE | 2023-02-01 07:15 | DI.RAD_ITS ---
Exam(s) XR FOOT RT COMPLETE EXAM: XR FOOT RT COMPLETE CLINICAL HISTORY: RT FOOT METATARSALGIA,M77.41. TECHNIQUE: 2D digital imaging was performed of the right foot. Three images were obtained. AP, obl ique and lateral views were obtained. COMPARISON: Comparison is made with prior examinations. FINDINGS: BONES: No acute fracture is present. No bony destructive lesion is seen. There is a plantar calcaneal spur. Postsurgical changes are again seen with the 1st MTP fusion and fusions of the PIP joints of the 2nd and 3rd toes. There are also postoperative changes seen in the head of the 3rd metatarsal. JOINTS: No dislocation present. Degenerative changes are seen in the foot. SOFT TISSUE: Normal. IMPRESSION: Stable postsurgical changes of the right foot. DATA REPOSITORY: RADIATION DOSE DELIVERED:
== END ==
PROVIDERS: PCP Family Medicine; Visit Provider Podiatrist
DX: M20.42 Other hammer toe(s) (acquired), left foot (principal); M77.41 Metatarsalgia, right foot; Z98.890 Other specified postprocedural states
CPT/HCPCS: 73630

== ENCOUNTER 2023-03-10 07:03 | Emergency (ER) | payer MEDICARE, SELFPAY ==
--- NOTE | 2023-03-10 08:00 | DI.RAD_ITS ---
Exam(s) XR SCAPULA RT EXAM: XR SCAPULA RT CLINICAL HISTORY: TRAUMA, PAIN AXIAL LOAD. TECHNIQUE: 2D digital imaging was performed. COMPARISON: CR XR SHOULDER RT COMPLETE 2+V from 06/10/2021 FINDINGS: BONES: No acute fracture is present. No bony destructive lesion is seen. JOINTS: No dislocation present. There is again seen a right reverse shoulder replacement. It appear s intact. There degenerative changes seen at the acromioclavicular joint. SOFT TISSUE: Normal. IMPRESSION: No acute fracture or dislocation. DATA REPOSITORY: RADIATION DOSE DELIVERED:
--- NOTE | 2023-03-10 08:00 | DI.CT_ITS ---
Exam(s) CT CERVICAL SPINE WO EXAM: CT CERVICAL SPINE WO CLINICAL HISTORY: CHEST PAIN, TRAUMA, PAIN AXIAL LOAD. TECHNIQUE: Imaging Protocol: Axial computed tomography images with coronal and sagittal reformatted images were created and reviewed COMPARISON: CT NECK WITH CONTRAST from 04/24/2013 FINDINGS: Bones: No acute fracture or subluxation. There are degenerative changes seen throughout the cervical spine. There is a well-circumscribed tiny stable osseous density at the tip of the odontoid. This i s unchanged compared to the prior examination. There is also stable density seen superior to the ant erior arch of C1. There is stable mild anterolisthesis of C7 on T1 and stable retrolisthesis of C3 o n C4. Soft Tissues: Unremarkable. Lung Apices: Clear. IMPRESSION: 1. No acute fracture or subluxation in the cervical spine. 2. Findings were discussed with Audrey Gillette at 9:03 a.m. on 03/10/2023. RADIATION DOSE DELIVERED: Total DLP Total DLP DATA REPOSITORY: All CT scans at this facility are submitted to the National Radiology Data Registry (NRDR) Dose Index Registry (DIR) with the [employer] (A[employer]). RADIATION OPTIMIZATION: All CT scans at this facility use at least one of these dose optimization te chniques: automated exposure control; mA and/or kV adjustment per patient size (includes targeted exa ms where dose is matched to clinical indication); or iterative reconstruction.
--- NOTE | 2023-03-10 08:00 | DI.RAD_ITS ---
Exam(s) XR CHEST 2V PA LATERAL EXAM: XR CHEST 2V PA LATERAL CLINICAL HISTORY: CHEST PAIN TECHNIQUE: 2D digital imaging was performed of the chest. Three images were obtained. PA and later al views were obtained. COMPARISON: CR CHEST 2 VIEWS PA,LAT from 12/18/2012 CR XR SHOULDER RT COMPLETE 2+V from 06/10/2021 FINDINGS: There is poor inspiration. MEDIASTINUM: Normal. HEART: Normal. PULMONARY VASCULATURE: Normal. LUNGS: There is a small infiltrate seen in the left lung base. PLEURAL SPACE: No pleural effusion or pneumothorax. BONE:Within normal limits for the patient's age. There is again seen a right shoulder replacement. OTHER FINDINGS:Normal. IMPRESSION: Small infiltrate in the left lung base which may represent atelectasis or pneumonia. DATA REPOSITORY: RADIATION DOSE DELIVERED:
--- NOTE | 2023-03-10 08:30 | RT.EKG_ITS ---
APPROVED REPORT Exam: Resting ECG Reason for Exam: Chest Pain Patient Location: E HR:84 bpm ECG Measurements Heart Rate 84 AXIS NE 265 P 50 QRSd 98 QRS 20 QT 364 T 30 QTc 431 Conclusion Age and gender not entered, assume 50 yo male for purpose of ECG interpretation Sinus rhythm...normal P axis, V-rate 60- 99 Prolonged [place] interval...NE >210, V-rate 50- 90 Consider anterior infarct...Q >30mS in V2-V5
--- NOTE | 2023-03-10 10:04 | ED.GENADUL_ITS ---
Discharge Plan Disposition Patient Disposition: Home Discharge Details Chief Complaint: Chest Pain Clinical Impression: Chest wall pain Primary Care Provider: Jose Manuel Hancock ED Provider: Alexey Hernandez Home Meds and New Rx's Prescriptions: No Action amlodipine 5 mg tablet 10 mg PO HS Qty: 180 3RF spironolactone 25 mg tablet 12.5 mg PO QAM Qty: 45 3RF (DME) FreeStyle Jevon 2 [place] Misc See Rx Instructions .ROUTE .MEDSUPPLY Qty: 1 0RF Rx Instructions: As directed (DME) FreeStyle Jevon 2 Sensor Kit See Rx Instructions .ROUTE .MEDSUPPLY Qty: 1 5RF Rx Instructions: As directed (DME) OneTouch Ultra Blue Test Strip Strip See Dose Instructions .ROUTE .MEDSUPPLY Qty: 100 3RF Dose Instruction: As directed Rx Instructions: test once daily tamsulosin [Flomax] 0.4 mg capsule 0.8 mg PO DAILY Qty: 180 3RF Rx Instructions: Take one cap in AM and one cap in the PM levothyroxine 112 mcg tablet 112 mcg PO DAILY Qty: 90 3RF atorvastatin 20 mg tablet 20 mg PO QPM Qty: 90 3RF metformin 1,000 mg tablet 1,000 mg PO BID Qty: 180 3RF carvedilol 6.25 mg tablet 6.25 mg PO BID Qty: 180 3RF Rx Instructions: must administer with a meal/food HPI General Date/Time Provider Initiated Documentation: 03/10/23 10:04 . Related Data Home Medications Medication Instructions Recorded Confirmed blood sugar diagnostic (OneTouch #100 ea 07/28/20 03/10/23 Ultra Blue Test Strip) flash glucose scanning reader #1 ea 08/20/20 03/10/23 (FreeStyle Jevon 2 [place]) flash glucose sensor (FreeStyle #1 ea 08/20/20 03/10/23 Jevon 2 Sensor kit) atorvastatin 20 mg tablet 20 mg PO QPM #90 tabs 05/11/22 03/10/23 levothyroxine 112 mcg tablet 112 mcg PO DAILY #90 tab-caps 05/11/22 03/10/23 tamsulosin 0.4 mg capsule (Flomax) 0.8 mg (2 x 0.4 mg) PO DAILY #180 05/11/22 03/10/23 tab-caps carvedilol 6.25 mg tablet 6.25 mg PO BID #180 tabs 08/30/22 03/10/23 metformin 1,000 mg tablet 1,000 mg PO BID #180 tabs 08/30/22 03/10/23 amlodipine 5 mg tablet 10 mg (2 x 5 mg) PO HS #180 tabs 11/09/22 03/10/23 spironolactone 25 mg tablet 12.5 mg (1/2 x 25 mg) PO QAM #45 11/09/22 03/10/23 tabs Previous Rx's Medication Instructions Recorded blood sugar diagnostic (OneTouch #100 ea 07/28/20 Ultra Blue Test Strip) flash glucose scanning reader #1 ea 08/20/20 (TAXI5.plStyle Jevon 2 [place]) flash glucose sensor (FreeStyle #1 ea 08/20/20 Jevon 2 Sensor kit) atorvastatin 20 mg tablet 20 mg PO QPM #90 tabs 05/11/22 levothyroxine 112 mcg tablet 112 mcg PO DAILY #90 tab-caps 05/11/22 tamsulosin 0.4 mg capsule (Flomax) 0.8 mg (2 x 0.4 mg) PO DAILY #180 05/11/22 tab-caps carvedilol 6.25 mg tablet 6.25 mg PO BID #180 tabs 08/30/22 metformin 1,000 mg tablet 1,000 mg PO BID #180 tabs 08/30/22 amlodipine 5 mg tablet 10 mg (2 x 5 mg) PO HS #180 tabs 11/09/22 spironolactone 25 mg tablet 12.5 mg (1/2 x 25 mg) PO QAM #45 11/09/22 tabs Allergies Allergy/AdvReac Type Severity Reaction Status Date / Time No Known Allergies Allergy Verified 02/15/23 08:53 General Stated Complaint: Chest Pain JOSIANE: 3 PFSH All Active Problems (Updated 03/10/23 @ 10:10 by Alexey Hernandez MD) Chest wall pain (Acute) Neuropathy (Acute) Onychomycosis (Acute) Capsulitis of right foot (Acute) Metatarsalgia, right foot (Acute) Hallux rigidus of right foot (Acute) PAD (peripheral artery disease) (Acute) Poor balance (Acute) Corns and callosities (Acute) Hammertoe of right foot (Acute) Hammertoe of left foot (Acute) Pain in left hip (Acute) Blood in stool (Acute) Pain, foot (Acute) Nail dystrophy (Acute) Hallux rigidus (Acute) Nutcracker esophagus (Acute) Groin rash (Acute) Visit for suture removal (Acute) Palpitations (Acute) Cervicalgia (Acute) Myalgia (Acute) Anal skin tag (Acute) Tumor (Acute) History of burning pain in leg (Acute) Rotator cuff tear arthropathy of right shoulder (Acute) s/p reverse TSA with biceps tenodesis DOS: 06/13/20 Traumatic tear of right rotator cuff (Acute) s/p reverse TSA with biceps tenodesis DOS: 06/13/20 Muscle cramps (Acute) Toe pain, right (Acute) Forearm pain (Acute) Hypotension (Acute) problematic, as he also has some high BP readings Cervical disc disorder with myelopathy (Acute) Diabetes mellitus (Acute) History of esophagogastroduodenoscopy (Acute) Status post cervical spinal arthrodesis (Acute) Status post inguinal hernia repair (Acute) Breast pain, left (Acute) Type 2 diabetes mellitus without complication (Acute) Osteoarthritis (Acute) Intention tremor (Acute) Hypothyroidism (Acute 12/13/12) Hyperlipidemia (Acute 01/31/13) Hemidiaphragm paralysis (Acute 05/04/16) [facility] Essential hypertension (Acute 05/01/13) EKG: WNL Dizziness (Acute 09/11/14) nuclear stress test negative in [place] Diverticulosis of colon without diverticulitis (Acute 04/28/00) Diverticulosis (Acute 08/17/16) BPH w urinary obs/LUTS (Acute) Medical History Bursitis of right shoulder Chest congestion Cubital tunnel syndrome on right (~08/2020) Diabetic neuropathy, type II diabetes mellitus Dyspnea (01/24/14) 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 Rotator cuff tear arthropathy of right shoulder (~07/2019) Tendonitis of long head of biceps brachii of right shoulder s/p reverse TSA with biceps tenodesis DOS: 06/13/20 Surgical History EGD - MAC (06/06/14) Repair of inguinal hernia left 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 B/L [facility] Spinal Fusion cervical Family History Mother Essential hypertension Heart disease Hyperlipidemia Father Essential hypertension Heart disease Hyperlipidemia Sister Essential hypertension Hyperlipidemia Brother Essential hypertension Hyperlipidemia Social History Smoking/Tobacco Use Status: Former Tobacco Use tobacco type: cigarettes Quit Date: 05/30/72 Tobacco: How many years used: 7 Smoking risk assessment performed?: Yes Alcohol Intake: current Alcohol Intake frequency: a few times a month Alcohol type: beer and wine Drug use: Never Substance use type: does not use Household members: none Communication Needs: None Do you need help understanding health information?: Never current occupation: SELF EMPLOYED Pets and animals: No Sexually active: No Do you think of yourself as: straight/heterosexual Current gender identity: male What is your relationship status?: How often do you talk on the phone with friends or family?: three or more times per week How often do you get together with friends or relatives?: three or more times per week How often do you attend taoist or protestant services?: 4 or more times per year Do you belong to any clubs or organized social groups?: no Panel score (0-1 are the most socially isolated patients): 2 What type of physical activity do you participate in: weight lifting Duration: 30-45 minutes/day Frequency: 5-6 times per week Erica/Mu-Ism: Gnosticist Special erica needs: No Seatbelt use: always Helmet use: No Drive intox or ride w/intox driver salesman: No Do you feel safe at home: Yes
[2023-03-10 10:13] VITALS: RESP 15
--- NOTE | 2023-03-10 10:18 | ED.PROG_ITS ---
Date of service: 03/10/23 Time of Service: 10:18 Medical Decision Making Please see paper documentation from downtime regarding initial ED presentation. Scapular x-ray was reviewed and interpreted by radiology:No acute fracture or dislocation. Chest x-ray reviewed and interpreted by radiology:Small infiltrate in the left lung base which may represent atelectasis or pneumonia. Patient has no cough and no history concerning for acute respiratory infection. Suspect atelectasis. CT cervical spine was interpreted by radiology:1. No acute fracture or subluxation in the cervical spine. 2. Findings were discussed with Audrey Gillette at 9:03 a.m. on 03/10/2023. No acute fractures appreciated. Suspect muscular etiology versus rib contusion. Consider early shingles but no rash. Plan for continued NSAID, avoidance of positions that worsen pain, and follow-up with PCP. Usual customary discharge instructions reviewed with the patient. Discharge Plan Disposition Patient Disposition: Home Condition: Stable Discharge Details Clinical Impression: Chest wall pain Primary Care Provider: Jose Manuel Hancock ED Provider: Alexey Hernandez Home Meds and New Rx's Prescriptions: Continued amlodipine 5 mg tablet 10 mg PO HS Qty: 180 3RF spironolactone 25 mg tablet 12.5 mg PO QAM Qty: 45 3RF (DME) FreeStyle Jevon 2 [place] Misc See Rx Instructions .ROUTE .MEDSUPPLY Qty: 1 0RF Rx Instructions: As directed (DME) FreeStyle Jevon 2 Sensor Kit See Rx Instructions .ROUTE .MEDSUPPLY Qty: 1 5RF Rx Instructions: As directed tamsulosin [Flomax] 0.4 mg capsule 0.8 mg PO DAILY Qty: 180 3RF Rx Instructions: Take one cap in AM and one cap in the PM levothyroxine 112 mcg tablet 112 mcg PO DAILY Qty: 90 3RF atorvastatin 20 mg tablet 20 mg PO QPM Qty: 90 3RF metformin 1,000 mg tablet 1,000 mg PO BID Qty: 180 3RF carvedilol 6.25 mg tablet 6.25 mg PO BID Qty: 180 3RF Rx Instructions: must administer with a meal/food Discontinued (DME) OneTouch Ultra Blue Test Strip Strip See Dose Instructions .ROUTE .MEDSUPPLY Qty: 100 3RF Dose Instruction: As directed Rx Instructions: test once daily Discharge Instructions Instructions: Chest Wall Pain (ED) Additional Instructions: Please take Aleve for discomfort. Dose according to label. Please take acetaminophen (tylenol) - 650mg every 6 hours by mouth as needed for pain. Please contact your primary care physician to arrange follow-up. Return to the ER immediately for any worsening or new concerning symptoms. Referrals: Jose Manuel Hancock MD [Primary Care Provider] - Discharge Data Discharge Date/Time-TO BE ENTERED AT DEPARTURE: 03/10/23 10:45
[2023-03-10 10:45] VITALS: BP 150/84; PULSE 85; RESP 15; O2SAT 98
[2023-03-10] MEDS: Lidocaine 5% Patch 1 PATCH TP (10:47)
== END 2023-03-10 10:45 | disposition home or self-care (01) ==
PROVIDERS: Emergency Provider Student in an Organized Health Care Education/Training Program; PCP Family Medicine
DX: R07.89 Other chest pain; M25.511 Pain in right shoulder; G44.309 Post-traumatic headache, unspecified, not intractable; W20.8XXA Other cause of strike by thrown, projected or falling object, initial encounter
CPT/HCPCS: 93005; 99284; 71046; 72125; 73010; 93010

== ENCOUNTER → 2023-04-19 08:57 | Outpatient (BNVA) | payer MEDICARE, SELFPAY | PROVIDERS: PCP Family Medicine; Visit Provider Nurse Practitioner Gerontology | DX: N40.1 Benign prostatic hyperplasia with lower urinary tract symptoms (principal); N13.8 Other obstructive and reflux uropathy; N52.9 Male erectile dysfunction, unspecified | CPT/HCPCS: 51798; 99214 ==

== ENCOUNTER 2023-05-03 14:57 | Outpatient (CLI) | payer MEDICARE, SELFPAY ==
--- NOTE | 2023-05-03 14:45 | DI.RAD_ITS ---
Exam(s) XR SHOULDER LT COMPLETE 2+V EXAM: XR SHOULDER LT COMPLETE 2+V CLINICAL HISTORY: LEFT SHOULDER PAIN. TECHNIQUE: 2D digital imaging was performed. Two views. COMPARISON: None FINDINGS: BONES: No acute fracture is present. No bony destructive lesion is seen. Spurring and subchondral cy st at the greater tuberosity. Mild spurring lesser tuberosity. JOINTS: No dislocation present. The glenohumeral joint space is maintained. There is mild spurring at the glenoid. Mild degenerative changes of AC joint. Mild spurring tip of acromion. SOFT TISSUE: Normal. IMPRESSION: [id number]-[id number] degenerative change. DATA REPOSITORY: RADIATION DOSE DELIVERED:
== END 2023-05-03 14:58 | disposition home or self-care (01) ==
LOC: DIORS 15:02
PROVIDERS: PCP Family Medicine; Referring Provider Family Medicine; Visit Provider Student in an Organized Health Care Education/Training Program
DX: M25.512 Pain in left shoulder (principal); S46.212A Strain of muscle, fascia and tendon of other parts of biceps, left arm, initial encounter; X50.0XXA Overexertion from strenuous movement or load, initial encounter
CPT/HCPCS: 99213; 73030

== ENCOUNTER 2023-05-11 08:30 | Outpatient (CLI) | payer MEDICARE, SELFPAY ==
[2023-05-11 12:23] LABS: CREATININE 1.1 mg/dL (0.70-1.30); Estimated GFR 69.14 (mL/min/1.73m2)
== END 2023-05-11 08:31 | disposition home or self-care (01) ==
LOC: LOS 08:30
PROVIDERS: PCP Family Medicine; Referring Provider Family Medicine; Visit Provider Family Medicine
DX: I10 Essential (primary) hypertension (principal)
CPT/HCPCS: 36415; 82565; 84132

== ENCOUNTER 2023-05-11 09:09 | Outpatient (REF) | payer MEDICARE, SELFPAY ==
[2023-05-11 12:52] LABS: COMMENT (LAB VIEW ONLY) 94.83 mg/dL; Microalb ug/mg Crea 12.5 ug/mg Cr
== END 2023-05-11 09:10 | disposition home or self-care (01) ==
LOC: LBN 09:09
PROVIDERS: PCP Family Medicine; Visit Provider Family Medicine
DX: E11.9 Type 2 diabetes mellitus without complications (principal)
CPT/HCPCS: 82043; 82570

== ENCOUNTER → 2023-05-17 09:40 | Outpatient (BNVA) | payer MEDICARE, SELFPAY | PROVIDERS: PCP Family Medicine; Referring Provider Family Medicine; Visit Provider Psychiatry & Neurology Neurology | DX: M77.41 Metatarsalgia, right foot (principal); M54.16 Radiculopathy, lumbar region; E11.9 Type 2 diabetes mellitus without complications | CPT/HCPCS: 99215; G2212 ==

== ENCOUNTER → 2023-06-14 14:26 | Outpatient (BNVA) | payer MEDICARE, SELFPAY | PROVIDERS: PCP Family Medicine; Referring Provider Family Medicine; Visit Provider Student in an Organized Health Care Education/Training Program | DX: S46.212D Strain of muscle, fascia and tendon of other parts of biceps, left arm, subsequent encounter (principal); X58.XXXD Exposure to other specified factors, subsequent encounter | CPT/HCPCS: 99213 ==

== ENCOUNTER → 2023-06-23 01:53 | Outpatient (CLI) | payer MEDICARE, SELFPAY ==
--- NOTE | 2023-06-23 06:45 | DI.RAD_ITS ---
Exam(s) XR CERVICAL SPINE COMP 4-5V EXAM: XR CERVICAL SPINE COMP 4-5V CLINICAL HISTORY: neck pain; ? occult C2 fracture from trauma 03/03,m54.2. TECHNIQUE: 2D digital imaging was performed. Six images were obtained. AP, odontoid, lateral and tremaine ateral oblique images were obtained. COMPARISON: No exams were available for comparison FINDINGS: The odontoid is intact. The lateral masses are well aligned. 1-2 mm of retrolisthesis of C3 on C4 is noted. 2-3 mm anterolisthesis of C7 on T1 is also noted. There is disc space narrowing at C3-4 throu gh C6-C7. Endplate osteophytes are seen at multiple levels of the cervical spine. No acute fracture o r subluxation is present. Multilevel bilateral neural foraminal stenosis is seen. The findings are mo st marked on the left. This is most marked at C4-5 and C5-C6. Soft tissue calcifications are seen whi ch which are likely vascular. The prevertebral soft tissues are unremarkable. Lung apices are clear. IMPRESSION: Marked degenerative changes seen in the cervical spine. DATA REPOSITORY: RADIATION DOSE DELIVERED:
== END ==
PROVIDERS: PCP Family Medicine; Visit Provider Family Medicine
DX: M50.122 Cervical disc disorder at C5-C6 level with radiculopathy (principal)
CPT/HCPCS: 72050

== ENCOUNTER → 2023-10-19 09:23 | Outpatient (BNVA) | payer MEDICARE, SELFPAY | PROVIDERS: PCP Family Medicine; Referring Provider Family Medicine; Visit Provider Nurse Practitioner Gerontology | DX: N40.1 Benign prostatic hyperplasia with lower urinary tract symptoms (principal); N13.8 Other obstructive and reflux uropathy | CPT/HCPCS: 51798; 99213 ==

== ENCOUNTER → 2023-11-15 08:16 | Outpatient (BNVA) | payer MEDICARE, SELFPAY | PROVIDERS: PCP Family Medicine; Referring Provider Family Medicine; Visit Provider Psychiatry & Neurology Neurology | DX: M77.41 Metatarsalgia, right foot (principal); E11.9 Type 2 diabetes mellitus without complications; M54.16 Radiculopathy, lumbar region | CPT/HCPCS: 99213 ==

== ENCOUNTER 2023-11-24 08:24 | Outpatient (CLI) | payer MEDICARE, SELFPAY ==
[2023-11-24 13:16] LABS: Vitamin B12 638 pg/mL (193-986)
[2023-11-29 15:17] LABS: Albumin 59.5 % (55.8-66.1); Albumin g/dL 4.3 g/dL (3.6-5.2); Comment (See Note); Total Protein 7.3 g/dL (6.3-8.2)
[2023-11-29 15:36] LABS: Immunotyping, Serum (See Note)
== END 2023-11-24 08:25 | disposition home or self-care (01) ==
PROVIDERS: Psychiatry & Neurology Neurology; PCP Family Medicine; Referring Provider Family Medicine; Visit Provider Family Medicine
DX: G62.9 Polyneuropathy, unspecified (principal)
CPT/HCPCS: 36415; 82607; 84165; 86320

== ENCOUNTER 2024-02-28 09:04 | Outpatient (CLI) | payer MEDICARE, SELFPAY ==
--- NOTE | 2024-02-28 09:00 | RT.EKG_ITS ---
APPROVED REPORT Exam: Resting ECG Reason for Exam: pre-op examination Patient Location: O HR:59 bpm ECG Measurements Heart Rate 59 AXIS [place] 264 P 46 QRSd 91 QRS 12 QT 414 T 46 QTc 411 Conclusion Sinus rhythm...normal P axis, V-rate 50- 99 Prolonged [place] interval...[place] >220, V-rate 50- 90
== END 2024-02-28 09:05 | disposition home or self-care (01) ==
LOC: DI.CM 09:05
PROVIDERS: PCP Family Medicine; Visit Provider Nurse Practitioner Family
DX: Z01.818 Encounter for other preprocedural examination (principal)
CPT/HCPCS: 93010

== ENCOUNTER → 2024-04-16 08:03 | Outpatient (BNVA) | payer MEDICARE, SELFPAY | PROVIDERS: PCP Family Medicine; Visit Provider Nurse Practitioner Gerontology | DX: N40.1 Benign prostatic hyperplasia with lower urinary tract symptoms (principal); N13.8 Other obstructive and reflux uropathy; N52.9 Male erectile dysfunction, unspecified | CPT/HCPCS: 51798; 99213 ==

== ENCOUNTER 2024-06-12 08:37 | Outpatient (CLI) | payer MEDICARE, SELFPAY ==
[2024-06-12 13:17] LABS: CREATININE 1.3 mg/dL (0.70-1.30); Calculated LDL 81 mg/dL (<100); Cholesterol 158 mg/dL (<200); Estimated GFR 55.88 (mL/min/1.73m2); HDL Cholesterol 59 mg/dL (40-60); Potassium 4.7 mmol/L (3.5-5.1); Triglyceride 93 mg/dL (<150)
== END 2024-06-12 08:38 | disposition home or self-care (01) ==
LOC: LOS 08:37
PROVIDERS: PCP Family Medicine; Referring Provider Family Medicine; Visit Provider Family Medicine
DX: I10 Essential (primary) hypertension (principal); E78.5 Hyperlipidemia, unspecified; E11.9 Type 2 diabetes mellitus without complications; M20.41 Other hammer toe(s) (acquired), right foot; G62.9 Polyneuropathy, unspecified; R79.89 Other specified abnormal findings of blood chemistry; M54.2 Cervicalgia
CPT/HCPCS: 36415; 80061; 82565; 84132

== ENCOUNTER → 2024-10-30 08:32 | Outpatient (BNVA) | payer MEDICARE, SELFPAY | PROVIDERS: PCP Family Medicine; Referring Provider Family Medicine; Visit Provider Nurse Practitioner Gerontology | DX: N40.1 Benign prostatic hyperplasia with lower urinary tract symptoms (principal); N13.8 Other obstructive and reflux uropathy; N52.9 Male erectile dysfunction, unspecified; R39.9 Unspecified symptoms and signs involving the genitourinary system | CPT/HCPCS: 99214; 51798 ==

== ENCOUNTER → 2024-11-05 15:23 | Outpatient (BNVA) | payer MEDICARE, SELFPAY | PROVIDERS: PCP Family Medicine; Referring Provider Family Medicine; Visit Provider Urology | DX: N52.9 Male erectile dysfunction, unspecified (principal) | CPT/HCPCS: 54235 ==

== ENCOUNTER → 2025-01-24 12:09 | Outpatient (BNVA) | payer MEDICARE, SELFPAY | PROVIDERS: PCP Family Medicine; Referring Provider Family Medicine; Visit Provider Urology | DX: N52.9 Male erectile dysfunction, unspecified (principal) | CPT/HCPCS: 99213 ==

== ENCOUNTER 2025-02-20 15:13 | Outpatient (CLI) | payer MEDICARE, SELFPAY ==
[2025-02-20 16:44] LABS: Vitamin B12 667 pg/mL (193-986); Vitamin D 25 Total 71 ng/mL (30-100)
[2025-02-21 18:34] LABS: PSA, Screening 0.4 ng/mL (<=6.5)
== END 2025-02-20 15:14 | disposition home or self-care (01) ==
LOC: LOS 15:14
PROVIDERS: Nurse Practitioner Gerontology; PCP Family Medicine; Visit Provider Family Medicine
DX: N40.1 Benign prostatic hyperplasia with lower urinary tract symptoms (principal); R39.9 Unspecified symptoms and signs involving the genitourinary system; D64.9 Anemia, unspecified; E55.9 Vitamin D deficiency, unspecified; G40.909 Epilepsy, unspecified, not intractable, without status epilepticus
CPT/HCPCS: 36415; 82306; 84153; 82607

== ENCOUNTER → 2025-03-07 09:30 | Outpatient (BNVA) | payer MEDICARE, SELFPAY | PROVIDERS: PCP Family Medicine; Referring Provider Family Medicine; Visit Provider Urology | DX: N52.9 Male erectile dysfunction, unspecified (principal); E11.59 Type 2 diabetes mellitus with other circulatory complications; I10 Essential (primary) hypertension | CPT/HCPCS: 99213 ==

== ENCOUNTER → 2025-05-08 08:04 | Outpatient (BNVA) | payer MEDICARE, SELFPAY | PROVIDERS: PCP Family Medicine; Referring Provider Family Medicine; Visit Provider Nurse Practitioner Gerontology | DX: N40.1 Benign prostatic hyperplasia with lower urinary tract symptoms (principal); N13.8 Other obstructive and reflux uropathy; N52.9 Male erectile dysfunction, unspecified; R39.9 Unspecified symptoms and signs involving the genitourinary system | CPT/HCPCS: 99213; 51798 ==